=== PATIENT | female | born 1990 | race Caucasian/White ===

== ENCOUNTER 2022-07-11 21:04 | Emergency (ER) | payer OTHER, SELFPAY ==
--- NOTE | ~2022-07-11 | XR_ITS ---
EXAMINATION: RIGHT HAND, RIGHT FOREARM CLINICAL INFORMATION: Laceration from glass COMPARISON: None TECHNIQUE: 2 views right forearm, 3 views right wrist FINDINGS: Old healed fractures are seen involving the distal radius and ulna. No radiopaque foreign bodies are seen. No acute fractures are noted. XR/XR forearm RT 2V IMPRESSION: Old healed fractures. No radiopaque foreign body detected
--- NOTE | ~2022-07-11 | XR_ITS ---
EXAMINATION: RIGHT HAND, RIGHT FOREARM CLINICAL INFORMATION: Laceration from glass COMPARISON: None TECHNIQUE: 2 views right forearm, 3 views right wrist FINDINGS: Old healed fractures are seen involving the distal radius and ulna. No radiopaque foreign bodies are seen. No acute fractures are noted. XR/XR hand RT 2V IMPRESSION: Old healed fractures. No radiopaque foreign body detected
[2022-07-11 21:08] VITALS: BP 115/83; PULSE 86; RESP 18; TEMP 37; O2SAT 100; BMI 18.8
--- NOTE | 2022-07-12 00:44 | ED.WOUNDLAC ---
HPI - Wound/Laceration General Chief Complaint: Wound/Laceration Stated Complaint: arm lac Time Seen by Provider: 07/12/22 00:43 Source: patient Mode of arrival: ambulatory History of Present Illness HPI narrative: 31-year-old female presents with laceration to the right arm after she fell on to some broken glass. Related Data Previous Rx's Medication Instructions Recorded cephalexin 500 mg capsule 500 mg PO BID 5 days #10 caps 07/12/22 doxycycline hyclate 100 mg tablet 100 mg PO BID 5 days #10 tabs 07/12/22 Allergies Allergy/AdvReac Type Severity Reaction Status Date / Time Sulfa (Sulfonamide Allergy Mild HIVES Verified 07/11/22 23:44 Antibiotics) [SULFA (SULFONAMIDE ANTIBIOTICS)] nisoldipine [Sular] Allergy Unknown Unknown Verified 07/11/22 23:44 sulfamethoxazole Allergy Unknown SWELLING Verified 07/11/22 23:44 [From BACTRIM] trimethoprim [From BACTRIM] Allergy Unknown SWELLING Verified 07/11/22 23:44 Sulfa Allergy Unknown Unknown Uncoded 07/11/22 23:44 Review of Systems Review of Systems: Pertinent positives and negatives as stated in HPI 10 point review of systems is otherwise negative. [facility] Past Medical History Source: nursing notes reviewed Social History Social History Advance Directives: No Advance Directives Information Provided: No Physical Exam Vital Signs: Vital Signs: Last Vital Signs Temp 98.6 F 07/11/22 21:08 Pulse 86 07/11/22 21:08 Resp 18 07/11/22 21:08 BP 115/83 07/11/22 21:08 Pulse Ox 100 07/11/22 21:08 O2 Del Method 07/11/22 21:08 BMI result Body Mass Index 18.8 VITAL SIGNS: Reviewed. GENERAL: Appears older than stated age, malnutrition, in no acute distress. HEAD: Normocephalic/atraumatic EYES: PERRLA, EOMI EARS: Ext canals without abnormality OROPHARYNX: no oral lesions noted, posterior pharynx clear LUNGS: Normal breath sounds. CARDIOVASCULAR: Regular rate and rhythm without noted murmurs ABDOMEN: Soft, non-tender, non-distended with bowel sounds. EXTREMITIES: No cyanosis, clubbing or edema; RIGHT UPPER EXTREMITY: 12 cm laceration extending from elbow distal to just above wrist, approximate 12 cm, to include a deep abrasion to the hypothenar NEUROLOGIC: Alert and oriented x 4. Course Course Course Narrative: 31-year-old female with history and clinical presentation consistent with significant injury after falling onto broken glass with 12 cm laceration to the forearm and additional deep abrasion to the hypothenar of the right hand. Patient received 18 interrupted sutures to the forearm laceration, bacitracin and dressing to the abrasion on the hypothenar and a Tdap. She will be discharged on antibiotics given her underlying IVDA. Procedures Laceration Laceration 1: Site: upper extremity Side (If applicable): right Size (cm): 12 Description: linear and irregular Depth: simple, single layer Local Anesthetic: lidocaine 2% Amount of anesthesia used (mL): 7 Pre-repair: wound explored, irrigated extensively, deep structures intact and extensive debridement Skin layer closed with: nylon Size (cm): 4-0 Number of sutures: 18 Technique: simple, interrupted Discharge Plan Discharge Clinical Impression: Laceration, Abrasion Patient Disposition: Home, Self-Care Instructions: Laceration (ED), Abrasion (ED) Additional Instructions: 1. Gently cleanse wounds with soap and water and blot dry, reapply antibiotic ointment and place dry dressing over top. 2. Either return to this emergency room or go to your primary care provider for removal of your sutures in 7-10 days (there are 18). 3. Complete entire course of antibiotics. 4. Follow-up with your primary care provider. Return to the ER for worsening symptoms. Prescriptions: New doxycycline hyclate 100 mg tablet 100 mg PO BID 5 Days Qty: 10 0RF cephalexin 500 mg capsule 500 mg PO BID 5 Days Qty: 10 0RF
--- OUTSIDE RECORDS SUMMARY | 2022-07-12 00:44 | XMS_ITS | Continuity of Care Document ---
:1990 Author Organization [facility] Address [address] [place] [id number]- Care Team Providers Name Role Phone Wandy Silverman MD Primary Care Physician Encounter [facility] [id number] Date(s): 06/17/21 - 06/17/[address] [address]- Encounter Diagnosis Abdominal pain (Final) - 06/17/21 Nausea (Final) - 06/17/21 Discharge Disposition: A-D/C Home Attending Physician: Yelena White MD Admitting Physician: Yelena White MD Referring Physician: Not on Staff, Referring MD Allergies, Adverse Reactions, Alerts Substance Reaction Severity Status sulfADIAZINE Active Bactrim Active Immunizations Given and Recorded Vaccine Date Status Refusal Reason tetanus/diphtheria/pertussis, acel(Tdap) 04/18/11 Given Medications Diflucan 150 mg oral tablet 1 tablet = 150 mg, By Mouth, Once, # 1 tablet, 0 Refills, Soft Stop, 07/02/20 12:10:00 EDT, Tablet, [facility] #[id number], 163, cm, 07/02/20 11:37:00 EDT, Height, 61, kg, 07/02/20 11:37:00 EDT, Dry Weight Start Date: 07/02/20 Status: Orderedibuprofen 600 mg oral tablet 1 tablet = 600 mg, By Mouth, Every 6 hours, # 40 tablet, 0 Refills, Maintenance, Tablet Start Date: 04/20/11 Status: OrderedMirena 52 mg intrauteral device 1 each = 52 mg, Intracervical, Once, # 1 each, 0 Refills, Soft Stop, 03/16/15 16:10:28, 1 each Intracervical Once Start Date: 03/16/15 Status: Orderedondansetron 4 mg oral tablet, disintegrating 1 tablet = 4 mg, By Mouth, Every 8 hours, PRN Nausea & Vomiting, # 10 tablet, 0 Refills, Maintenance, 08/25/20 21:29:00 EST, Tablet, [id number], Partial fill upon patient request, 163, cm, 08/25/20 19:55:00 EST, Height, 65, kg,... Start Date: 08/25/20 Status: Orderedondansetron 4 mg oral tablet, disintegrating 1 tablet = 4 mg, By Mouth, Every 8 hours, PRN Nausea & Vomiting, # 10 tablet, 0 Refills, Acute 06/23/21 22:15:00 EDT, 06/17/21 21:08:00 EDT, Tablet, [facility]/pharmacy #[id number], Partial fill upon patient request if the prescription is for a schedule II opioid... Start Date: 06/17/21 Stop Date: 06/23/21 Status: OrderedRemeron 15 mg oral tablet 1 tablet = 15 mg, By Mouth, Daily at bedtime, 0 Refills, Maintenance, 11/22/19 13:44:00 EST Start Date: 11/22/19 Status: OrderedSeroquel 50 mg, By Mouth, Refills 0, Maintenance, 11/22/19 13:44:00 EST Start Date: 11/22/19 Status: Ordered Results Radiology Reports Exam Date Time Procedure Performing Provider Status 06/17/21 7:14 PM Chest 2 Views Frontal and Lat Minerva Lopez ; Auth (Verified) Notes:(Chest 2 Views Frontal and Lat) Reason For Exam: Shortness of Breath, Fever;Other:RESULT: Chest 2 Views Frontal and Lat Chest 2 Views Frontal and Lat Hx of Present Illness: states abdominal pain center of abdomen states + nausea states travels into back and having N V and extremly tired states thinks pancreatitis may be acting up states pain aslo into chest area started on friday getting worse; Reason: Other:; Shortness of Breath, Fever; Clinical Question(s): Pneumonia COMPARISON: X-ray 06/02/2019 FINDINGS: LINES AND TUBES: None. LUNGS AND PLEURA: Clear lungs. Normal pulmonary vascularity. No pleural effusion. No pneumothorax. HEART, MEDIASTINUM AND DIGNA: Heart is normal in size. Normal upper mediastinal and hilar contour. BONES AND SOFT TISSUES: No acute abnormality. IMPRESSION: No acute abnormality. WSN: [id number] Ordering Physician: Danielle Jackson Dictated By: Erickson Gomez MD Dictated Date/Time: 06/17/21 7:20 pm Reviewed By: Erickson Gomez MD Signed By: Erickson Gomez MD Signed Date/Time: 06/17/21 7:20 pm Transcribed By: CASSIUS Transcribed Date/Time: 06/17/21 7:19 pm Vital Signs Most recent to oldest 1 2 3 [Reference Range]: Height 163 cm 163 cm (06/17/21 4:30 PM) (06/17/21 3:54 PM) Weight 73 kg 73 kg (06/17/21 4:30 PM) (06/17/21 3:54 PM) Oxygen Saturation [94-100 %] 96 % 99 % 98 % (06/17/21 8:56 PM) (06/17/21 3:54 PM) (06/17/21 3:43 P M) Pulse Rate [55-90 bpm] 73 bpm 77 bpm 94 bpm (06/17/21 8:56 PM) (06/17/21 3:54 PM) *H* (06/17/21 3:43 PM) Body Mass Index [18.5-24.99] 27.48 *H* (06/17/21 3:54 PM) Blood Pressure [90-138/55-84 111/78 mm Hg 131/90 mm Hg mm Hg] (06/17/21 8:56 PM) (06/17/21 3:54 PM) Respiratory Rate [16-30 18 br/min 19 br/min br/min] (06/17/21 8:56 PM) (06/17/21 3:54 PM) Temperature [96.8-100.4 98.3 DegF 98.8 DegF DegF] (06/17/21 8:56 PM) (06/17/21 3:54 PM) Mode of Delivery (Oxygen) Room air Room air (06/17/21 8:56 PM) (06/17/21 3:54 PM) Blood pressure sites Arm, right Arm, right (06/17/21 8:56 PM) (06/17/21 3:54 PM) Temperature Route Oral Oral (06/17/21 8:56 PM) (06/17/21 3:54 PM) Dry Weight 73 kg 73 kg (06/17/21 4:30 PM) (06/17/21 3:54 PM) Weight Obtained Via Patient/family stated (06/17/21 3:54 PM) Dry Weight Obtained Via Patient/family stated (06/17/21 3:54 PM) Social History Social History Type Response Smoking Status 10 or more cigarettes (1/2 p ack or more)/day in last 30 days entered on: 05/09/19 Sex Female
--- OUTSIDE RECORDS SUMMARY | 2022-07-12 00:44 | XMS_ITS | Continuity of Care Document ---
:1990 Author Organization [facility] Address [address] [place] [address]- Care Team Providers Name Role Phone Wandy Silverman MD Primary Care Physician Encounter [facility] Date(s): 07/02/20 - 07/09/20 [facility] [address] [place] [address]- [facility] Attending Physician: Alannah Evans Referring Physician: Wandy Silverman MD Allergies, Adverse Reactions, Alerts Substance Reaction Severity Status sulfADIAZINE Active Bactrim Active Immunizations Given and Recorded Vaccine Date Status Refusal Reason tetanus/diphtheria/pertussis, acel(Tdap) 04/18/11 Given Medications Diflucan 150 mg oral tablet 1 tablet = 150 mg, By Mouth, Once, # 1 tablet, 0 Refills, Soft Stop, 07/02/20 12:10:00 EDT, Tablet, [facility] #[id number], 163, cm, 07/02/20 11:37:00 EDT, Height, 61, [...] each Intracervical Once Start Date: 03/16/15 Status: OrderedRemeron 15 mg oral tablet 1 tablet = 15 mg, By Mouth, Daily at bedtime, 0 Refills, Maintenance, 11/22/19 13:44:00 EST Start Date: 11/22/19 Status: OrderedSeroquel 50 mg, By Mouth, Refills 0, Maintenance, 11/22/19 13:44:00 EST Start Date: 11/22/19 Status: Ordered Vital Signs Most recent to oldest [Reference Range]: 1 Height 163 cm (07/02/20 11:37 AM) Oxygen Saturation [94-100 %] 99 % (07/02/20 11:37 AM) Pulse Rate [55-90 bpm] 62 bpm (07/02/20 11:37 AM) Blood Pressure [90-138/55-84 mm Hg] 124/77 mm Hg (07/02/20 11:37 AM) Respiratory Rate [16-30 br/min] 20 br/min (07/02/20 11:37 AM) Temperature [96.8-100.4 DegF] 98.3 DegF (07/02/20 11:37 AM) Blood pressure sites Arm, left (07/02/20 11:37 AM) Temperature Route Temporal (07/02/20 11:37 AM) Dry Weight 61.0 kg (07/02/20 11:37 AM) Weight Obtained Via Standing scale (07/02/20 11:37 AM) Social History Social History Type Response Smoking Status 10 or more cigarettes (1/2 p ack or more)/day in last 30 days entered on: 05/09/19 Sex Female
--- OUTSIDE RECORDS SUMMARY | 2022-07-12 00:44 | XMS_ITS | Continuity of Care Document ---
:1990 Author Organization [facility] Address [address] [place] [id number]- Care Team Providers Name Role Phone Wandy Silverman MD Primary Care Physician Encounter [facility] Date(s): 07/30/21 - 07/30/[address] [address]- Discharge Disposition: A-D/C Walkout Attending Physician: Not on Staff, Attending MD Admitting Physician: Not on Staff, Admitting MD Referring Physician: Not on Staff, Referring MD Allergies, Adverse Reactions, Alerts Substance Reaction Severity Status sulfADIAZINE Active Bactrim Active Immunizations Given and Recorded Vaccine Date Status Refusal Reason tetanus/diphtheria/pertussis, acel(Tdap) 04/18/11 Given Medications Diflucan 150 mg oral tablet 1 tablet = 150 mg, By Mouth, Once, # 1 tablet, 0 Refills, Soft Stop, 07/02/20 12:10:00 EDT, Tablet, [id number], 163, cm, 07/02/20 11:37:00 EDT, Height, 61, [...] 0 Refills, Maintenance, 08/25/20 21:29:00 EST, Tablet, [id number], Partial fill upon patient request, 163, cm, 08/25/20 19:55:00 EST, Height, 65, kg,... Start Date: 08/25/20 Status: OrderedRemeron 15 mg oral tablet 1 tablet = 15 mg, By Mouth, Daily at bedtime, 0 Refills, Maintenance, 11/22/19 13:44:00 EST Start Date: 11/22/19 Status: OrderedSeroquel 50 mg, By Mouth, Refills 0, Maintenance, 11/22/19 13:44:00 EST Start Date: 11/22/19 Status: Ordered Vital Signs Most recent to oldest [Reference Range]: 1 2 Oxygen Saturation [94-100 %] 99 % 97 % (07/30/21 5:06 AM) (07/30/21 1:30 AM) Pulse Rate [55-90 bpm] 68 bpm 96 bpm (07/30/21 5:06 AM) *H* (07/30/21 1:30 AM) Blood Pressure [90-138/55-84 mm Hg] 125/79 mm Hg 133/ 89 mm Hg (07/30/21 5:06 AM) (07/30/21 1:30 AM) Respiratory Rate [16-30 br/min] 16 br/min 18 br/mi n (07/30/21 5:06 AM) (07/30/21 1:30 AM) Temperature [96.8-100.4 DegF] 97.9 DegF 98.4 DegF (07/30/21 5:06 AM) (07/30/21 1:30 AM) Mode of Delivery (Oxygen) Room air Room air (07/30/21 5:06 AM) (07/30/21 1:30 AM) Blood pressure sites Arm, right Arm, right (07/30/21 5:06 AM) (07/30/21 1:30 AM) Temperature Route Oral Oral (07/30/21 5:06 AM) (07/30/21 1:30 AM) Social History Social History Type Response Smoking Status 10 or more cigarettes (1/2 p ack or more)/day in last 30 days entered on: 05/09/19 Sex Female
--- OUTSIDE RECORDS SUMMARY | 2022-07-12 00:44 | XMS_ITS | Continuity of Care Document ---
:1990 Author Organization [facility] Address [address] [place] [id number]- Care Team Providers Name Role Phone Not on Staff, PCP Primary Care Physician Unavailable Encounter [facility] Date(s): 11/22/19 - 11/22/[address] [address]- [facility] Discharge Disposition: A-D/C Walkout Attending Physician: Not on Staff, Attending MD Admitting Physician: Not on Staff, Admitting MD Referring Physician: Not on Staff, Referring MD Allergies, Adverse Reactions, Alerts Substance Reaction Severity Status sulfADIAZINE Active Bactrim Active Immunizations Given and Recorded Vaccine Date Status Refusal Reason tetanus/diphtheria/pertussis, acel(Tdap) 04/18/11 Given Medications ibuprofen 600 mg oral tablet 1 tablet = [...] Range]: 1 2 Oxygen Saturation [94-100 %] 100 % 98 % (11/22/19 1:40 PM) (11/22/19 1:36 PM) Pulse Rate [55-90 bpm] 118 bpm 120 bpm *H* *H* (11/22/19 1:40 PM) (11/22/19 1:36 PM) Blood Pressure [90-138/55-84 mm Hg] 117/65 mm Hg (11/22/19 1:40 PM) Respiratory Rate [16-30 br/min] 20 br/min (11/22/19 1:40 PM) Temperature [96.8-100.4 DegF] 98.6 DegF (11/22/19 1:40 PM) Mode of Delivery (Oxygen) Room air (11/22/19 1:40 PM) Blood pressure sites Arm, right (11/22/19 1:40 PM) Temperature Route Oral (11/22/19 1:40 PM) Social History Social History Type Response Smoking Status 10 or more cigarettes (1/2 p ack or more)/day in last 30 days entered on: 05/09/19 Sex Female
--- OUTSIDE RECORDS SUMMARY | 2022-07-12 00:44 | XMS_ITS | Continuity of Care Document ---
:1990 Author Organization [facility] Address [address] [place] [address]- Care Team Providers Name Role Phone Wandy Silverman MD Primary Care Physician Encounter [facility] Date(s): 06/05/22 - 06/11/[address] [address]- Discharge Disposition: A-D/C Home Attending Physician: Magdaleno Matthew MD Admitting Physician: Prosper Dooley MD Referring Physician: Prosper Dooley MD Allergies, Adverse Reactions, Alerts Substance Reaction Severity Status sulfADIAZINE Active Bactrim Active Immunizations Given and Recorded Vaccine Date Status Refusal Reason tetanus/diphtheria/pertussis, acel(Tdap) 04/18/11 Given Medications buPROPion 150 mg/24 hours (XL) oral tablet, extended release 1 tablet = 150 mg, By Mouth, Every 24 hours, # 30 tablet, 0 Refills, Maintenance, 06/05/22 12:23:00 EDT, ER Tablet, Partial fill upon patient request if the prescription is for a schedule II opioid drug. Start Date: 06/05/22 Status: OrderedcloNIDine 0.1 mg oral tablet 0.1 mg, 1, tablet, By Mouth, 2 times a day, PRN, # 60 tablet, Refills 0, Maintenance, Anxiety, 06/05/22 12:23:00 EDT, Partial fill upon patient request if the prescription is for a schedule II opioid drug. Start Date: 06/05/22 Stop Date: 07/05/22 Status: Ordereddocusate sodium 100 mg oral capsule 200 mg, 2, capsule, By Mouth, 2 times a day, Refills 0, Maintenance, 06/05/22 12:01:00 EDT, Partial fill upon patient request if the prescription is for a schedule II opioid drug. Start Date: 06/05/22 Status: Ordereddoxycycline monohydrate 100 mg oral capsule 1 capsule = 100 mg, By Mouth, 2 times a day, for 14 days, # 28 capsule, 0 Refills, Acute 06/25/22 7:17:00 EDT, 06/11/22 7:17:00 EDT, Capsule, [facility]/pharmacy #[id number], Partial fill upon patient request if the prescription is for a schedule II opioid drug.,... Start Date: 06/11/22 Stop Date: 06/25/22 Status: Orderedmethadone 10 mg/5 mL oral solution 45 mL = 90 mg, By Mouth, Daily, 0 Refills, Maintenance, 06/11/22 7:17:00 EDT, Solution, Partial fillupon patient request if the prescription is for a schedule II opioid drug. Start Date: 06/11/22 Status: OrderedMethadone Liquid 90 mg, Solution, By Mouth, per addiction medicine, 06/11/22 9:00:00 EDT Start Date: 06/11/22 Stop Date: 06/11/22 Status: Completedmidodrine 5 mg oral tablet 5 mg, Tablet, By Mouth, 06/11/22 9:00:00 EDT Start Date: 06/11/22 Stop Date: 06/11/22 Status: Completedmidodrine 5 mg oral tablet 5 mg, 1, tablet, By Mouth, 3 times a day, # 90 tablet, Refills 0, Tot. Refills 0, Maintenance, 06/11/22 7:17:00 EDT, Route to Pharmacy Electronically, [facility]/pharmacy #[id number], Partial fill upon patient request if the prescription is for a schedule II opioi... Start Date: 06/11/22 Status: Orderedmirtazapine 7.5 mg oral tablet 1 tablet = 7.5 mg, By Mouth, Daily at bedtime, # 30 tablet, 0 Refills, Maintenance, 06/05/22 12:23:00 EDT, Partial fill upon patient request if the prescription is for a schedule II opioid drug. Start Date: 06/05/22 Status: Orderedondansetron 4 mg oral tablet, disintegrating 1 tablet = 4 mg, By Mouth, Every 8 hours, PRN Nausea & Vomiting, # 10 tablet, 0 Refills, Maintenance, 08/25/20 21:29:00 EST, Tablet, [facility]-[id number], Partial fill upon patient request, 163, cm, 08/25/20 19:55:00 EST, Height, 65, kg,... Start Date: 08/25/20 Status: Orderedprazosin 2 mg oral capsule 1 capsule = 2 mg, By Mouth, Daily at bedtime, # 30 capsule, 0 Refills, Maintenance, 06/05/22 12:49:00 EDT, Capsule, Partial fill upon patient request if the prescription is for a schedule II opioid drug. Start Date: 06/05/22 Status: OrderedQUEtiapine 25 mg oral tablet 25 mg, 1, tablet, By Mouth, 2 times a day, # 30 tablet, Refills 0, Maintenance, 06/05/22 12:23:00 EDT, Partial fill upon patient request if the prescription is for a schedule II opioid drug. Start Date: 06/05/22 Status: OrderedSenna 8.6 mg oral tablet 17.2 mg, 2, tablet, By Mouth, Daily at bedtime, Refills 0, Maintenance, 06/05/22 12:02:00 EDT, Tablet, Partial fill upon patient request if the prescription is for a schedule II opioid drug. Start Date: 06/05/22 Status: OrderedVancomycin 1gm Vancomycin 1gm, See Instructions, # 10 each, Refills 0, Tot. Refills 0, Maintenance, IVPB BID - end date 06/10/22, 06/05/22 12:12:00 EDT, Supply Start Date: 06/05/22 Status: Ordered Vital Signs Most recent to oldest 1 2 3 [Reference Range]: Height 163 cm 163 cm 163 cm (06/11/22 8:17 AM) (06/11/22 3:45 AM) (06/10/22 11: 52 PM) Weight 54.9 kg (06/05/22 7:54 PM) Oxygen Saturation [94-100 %] 98 % 98 % 97 % (06/11/22 9:36 AM) (06/11/22 8:17 AM) (06/11/22 3:4 5 AM) Pulse Rate [55-90 bpm] 74 bpm 74 bpm 79 bpm (06/11/22 8:21 AM) (06/11/22 8:17 AM) (06/11/22 3:4 5 AM) Body Mass Index [18.5-24.99] 20.66 (06/05/22 7:54 PM) Blood Pressure [90-138/55-84 108/62 mm Hg 108/62 mm Hg 103 /58 mm Hg mm Hg] (06/11/22 8:21 AM) (06/11/22 8:17 AM) (06/11/22 3:4 5 AM) Respiratory Rate [16-30 14 br/min 14 br/min 16 br/mi n br/min] *L* *L* (06/11/22 8:17 AM ) (06/11/22 10:14 AM) (06/11/22 8:21 AM) Temperature [96.8-100.4 DegF] 98.2 DegF 98.0 DegF 97 .9 DegF (06/11/22 8:17 AM) (06/11/22 3:45 AM) (06/10/22 11: 52 PM) Mode of Delivery (Oxygen) Room air Room air Room a ir (06/11/22 8:17 AM) (06/11/22 3:45 AM) (06/10/22 11: 52 PM) Blood pressure sites Arm, right Arm, right Arm, right (06/11/22 8:17 AM) (06/11/22 3:45 AM) (06/10/22 11: 52 PM) Temperature Route Oral Oral Oral (06/11/22 8:17 AM) (06/11/22 3:45 AM) (06/10/22 11: 52 PM) Dry Weight 54.9 kg (06/05/22 7:54 PM) Weight Obtained Via Bed scale (06/05/22 7:54 PM) Social History Social History Type Response Smoking Status 10 or more cigarettes (1/2 p ack or more)/day in last 30 days entered on: 05/09/19 Sex Female Care Team PersonnelName: Wandy Silverman MD Address: [facility] [address]
--- OUTSIDE RECORDS SUMMARY | 2022-07-12 00:44 | XMS_ITS | Continuity of Care Document ---
:1990 Author Organization [facility] Address [address] [place] [id number]- Care Team Providers Name Role Phone Wandy Silverman MD Primary Care Physician Encounter [facility] [place] Date(s): 05/27/22 - 06/05/[address] [address]- Encounter Diagnosis Left hip pain (Final) - 05/24/22 IV drug user (Final) - 05/24/22 Discharge Disposition: Transferred to short-term general hospit Attending Physician: Ji ARGUETA [facility] Admitting Physician: Derek King DO Referring Physician: Not on Staff, Referring MD [...] II opioid drug. Start Date: 06/05/22 Status: OrderedEnoxaparin 0.4 mL = 40 mg, Subcutaneous Injection, Daily, 0 Refills, Maintenance, 06/05/22 12:01:00 EDT, Injection, Partial fill upon patient request if the prescription is for a schedule II opioid drug. Start Date: 06/05/22 Status: Orderedibuprofen 600 mg oral tablet 600 mg, 1, tablet, By Mouth, 4 times a day, PRN, for 3 days, # 12 tablet, Refills 0, Tot. Refills 0,Acute 06/08/22 12:54:00 EDT, Pain , Moderate, 06/05/22 12:54:00 EDT, Do Not Route, Partial fill uponpatient request if the prescription is for a sche... Start Date: 06/05/22 Stop Date: 06/08/22 Status: Orderedibuprofen 600 mg oral tablet 600 mg, Tablet, By Mouth, Every 6 hours, PRN for Pain , Moderate, Routine, 05/24/22 14:53:00 EDT Start Date: 05/24/22 Stop Date: 06/06/22 Status: Discontinuedmethadone 10 mg oral tablet 4.5 tablet = 45 mg, By Mouth, 2 times a day, 0 Refills, Maintenance, 06/05/22 12:02:00 EDT, Tablet, Partial fill upon patient request if the prescription is for a schedule II opioid drug. Start Date: 06/05/22 Status: Orderedmethadone 10 mg oral tablet 45 mg, Tablet, By Mouth, Total daily dosing 90mg, 06/05/22 9:00:00 EDT Start Date: 06/05/22 Stop Date: 06/05/22 Status: CompletedMiraLax Powder 1 pack/packet = 17 Gm, By Mouth, Daily, 0 Refills, Maintenance, 06/05/22 12:02:00 EDT, Powder, Partial fill upon patient request if the prescription is for a schedule II opioid drug. Start Date: 06/05/22 Status: Orderedmirtazapine 7.5 mg oral tablet 1 [...] 0 Refills, Maintenance, 08/25/20 21:29:00 EST, Tablet, [id number], Partial fill upon patient request, 163, cm, [...] II opioid drug. Start Date: 06/05/22 Status: OrderedTylenol 325 mg oral capsule 2 capsule = 650 mg, By Mouth, 4 times a day, for 5 days, # 40 capsule, 0 Refills, Acute 06/10/22 12:24:00 EDT, 06/05/22 12:24:00 EDT, Capsule, Partial fill upon patient request if the prescription is for a schedule II opioid drug. Start Date: 06/05/22 Stop Date: 06/10/22 Status: OrderedVancomycin 1gm Vancomycin 1gm, See Instructions, # 10 each, Refills 0, Tot. Refills 0, Maintenance, IVPB BID - end date 06/10/22, 06/05/22 12:12:00 EDT, Supply Start Date: 06/05/22 Status: Ordered Results Orders for Microbiology Reports Name Date Anaerobic Culture (ANAEROBIC CULTURE) 05/28/22 Fungal Culture, Nonrespiratory (FUNGAL CULT,NON-RESPIR ATORY) 05/28/22 Sterile Body Fluid Culture W/ Gram Smear (STERILE FLUI D CULT.) 05/28/22 Anaerobic Culture (ANAEROBIC CULTURE) 05/28/22 Fungal Culture, Nonrespiratory (FUNGAL CULT,NON-RESPIR ATORY) 05/28/22 Tissue Culture w/ Gram Smear (TISSUE/BIOPSY CULT.) 05/13 04/03 Anaerobic Culture (ANAEROBIC CULTURE) 05/28/22 Fungal Culture, Nonrespiratory (FUNGAL CULT,NON-RESPIR ATORY) 05/28/22 Sterile Body Fluid Culture W/ Gram Smear (STERILE FLUI D CULT.) 05/28/22 Blood Culture 05/28/22 Microbiology Reports (Most Recent Ten) TEST:Anaerobic Culture STATUS:Unauthenticated BODY SITE: SOURCE:FLUID COLLECTED DATE/TIME:05/28/22 2:24 PMAnaerobic Culture SPECIMEN DESCRIPTION : FLUID LFT HIP ARTHOGRAM DILUTED FL SPECIAL REQUESTS : NONE CULTURE : NO ANAEROBES ISOLATED SO FAR. REPORT STATUS : PRELIMINARY REPORT TEST:Sterile Fluid Culture STATUS:Auth (Verified) BODY SITE: SOURCE:FLUID COLLECTED DATE/TIME:05/28/22 2:24 PMSterile Fluid Culture SPECIMEN DESCRIPTION : FLUID LFT HIP ARTHOGRAM DILUTED FL SPECIAL REQUESTS : NONE GRAM STAIN : 1+ WHITE BLOOD CELLS 2+ TISSUE CELLS NO ORGANISMS SEEN CULTURE : NO GROWTH 2 DAYS REPORT STATUS : FINAL 05/30/2022TEST:Fungal Culture, Non-Respiratory STATUS:Unauthenticated BODY SITE: SOURCE:FLUID COLLECTED DATE/TIME:05/28/22 2:24 PMFungal Culture, Non-Respiratory SPECIMEN DESCRIPTION : FLUID LFT HIP ARTHOGRAM DILUTED FL SPECIAL REQUESTS : NONE DIRECT EXAM : NO FUNGAL ELEMENTS OBSERVED CULTURE : NO FUNGI ISOLATED AFTER 6 DAYS REPORT STATUS : PRELIMINARY REPORT TEST:Anaerobic Culture STATUS:Unauthenticated BODY SITE: SOURCE:TISSUE1 COLLECTED DATE/TIME:05/28/22 2:19 PMAnaerobic Culture SPECIMEN DESCRIPTION : TISSUE JOINT LFT HIP SPECIAL REQUESTS : NONE CULTURE : NO ANAEROBES ISOLATED SO FAR. REPORT STATUS : PRELIMINARY REPORT TEST:Fungal Culture, Non-Respiratory STATUS:Unauthenticated BODY SITE: SOURCE:TISSUE1 COLLECTED DATE/TIME:05/28/22 2:19 PMFungal Culture, Non-Respiratory SPECIMEN DESCRIPTION : TISSUE JOINT LFT HIP SPECIAL REQUESTS : NONE DIRECT EXAM : NO FUNGAL ELEMENTS OBSERVED CULTURE : NO FUNGI ISOLATED AFTER 6 DAYS REPORT STATUS : PRELIMINARY REPORT TEST:Tissue/Biopsy Culture STATUS:Auth (Verified) BODY SITE: SOURCE:TISSUE1 COLLECTED DATE/TIME:05/28/22 2:19 PMTissue/Biopsy Culture SPECIMEN DESCRIPTION : TISSUE JOINT LFT HIP SPECIAL REQUESTS : NONE GRAM STAIN : 2+ WHITE BLOOD CELLS NO ORGANISMS SEEN CULTURE : NO GROWTH 2 DAYS REPORT STATUS : FINAL 05/30/2022TEST:Anaerobic Culture STATUS:Unauthenticated BODY SITE: SOURCE:ASPIRA COLLECTED DATE/TIME:05/28/22 2:02 PMAnaerobic Culture SPECIMEN DESCRIPTION : ASPIRATE LFT HIP SPECIAL REQUESTS : NONE CULTURE : NO ANAEROBES ISOLATED SO FAR. REPORT STATUS : PRELIMINARY REPORT TEST:Fungal Culture, Non-Respiratory STATUS:Unauthenticated BODY SITE: SOURCE:ASPIRA COLLECTED DATE/TIME:05/28/22 2:02 PMFungal Culture, Non-Respiratory SPECIMEN DESCRIPTION : ASPIRATE LFT HIP SPECIAL REQUESTS : NONE DIRECT EXAM : NO FUNGAL ELEMENTS OBSERVED CULTURE : NO FUNGI ISOLATED AFTER 6 DAYS REPORT STATUS : PRELIMINARY REPORT TEST:Sterile Fluid Culture STATUS:Auth (Verified) BODY SITE: SOURCE:ASPIRA COLLECTED DATE/TIME:05/28/22 2:02 PMSterile Fluid Culture SPECIMEN DESCRIPTION : ASPIRATE LFT HIP SPECIAL REQUESTS : NONE GRAM STAIN : 1+ WHITE BLOOD CELLS 2+ TISSUE CELLS NO ORGANISMS SEEN CULTURE : NO GROWTH 2 DAYS REPORT STATUS : FINAL 05/30/2022TEST:Blood Culture STATUS:Auth (Verified) BODY SITE: SOURCE:Blood COLLECTED DATE/TIME:05/28/22 10:05 AMBlood Culture SPECIMEN DESCRIPTION : BLOOD NOSITE SPECIAL REQUESTS : NONE CULTURE : NO GROWTH 5 DAYS. REPORT STATUS : FINAL 2Radiology Reports Exam Date Time Procedure Performing Provider Status 05/28/22 2:37 PM C-Arm < 1 Hour Molly Massey; Auth (V erified) Notes:(C-Arm < 1 Hour) Reason For Exam: LT hip AspirationRESULT: C-Arm < 1 Hour Hip Comp 2 Views Left, C-Arm < 1 Hour Reason: LT Hip Aspiration COMPARISON: Left hip MRI dated 05/26/2022. FINDINGS: Intraoperative fluoroscopic support was provided. No radiologist was in attendance. 14 selected intraoperative fluoroscopic images of the left hip were submitted for interpretation. Technologist time: 60 minutes. Fluoroscopic time: 40 seconds. Initial images demonstrate a surgical needle with tip overlying the femoral head neck junction. Subsequent images demonstrate injection of contrast with final images demonstrating surgical retractor device with metallic clamp with tip overlying the femoral head. IMPRESSION: Localization images of the left hip. Please refer to the intraoperative report for further details. WSN: [id number] Ordering Physician: Kamari Stewart Dictated By: Fabiola Davis MD Dictated Date/Time: 05/28/22 4:54 pm Reviewed By: Fabiola Davis MD Signed By: Fabiola Davis MD Signed Date/Time: 05/28/22 4:54 pm Transcribed By: CASSIUS Transcribed Date/Time: 05/28/22 4:48 pm Exam Date Time Procedure Performing Provider Status 05/28/22 2:37 PM XR Hip Comp 2 Views Left Molly Massey ; Auth (Verified) Notes:(XR Hip Comp 2 Views Left) Reason For Exam: LT Hip AspirationRESULT: Hip Comp 2 Views Left Hip Comp 2 Views Left, C-Arm < 1 Hour Reason: LT Hip Aspiration COMPARISON: Left hip MRI dated 05/26/2022. FINDINGS: Intraoperative fluoroscopic support was provided. No radiologist was in attendance. 14 selected intraoperative fluoroscopic images of the left hip were submitted for interpretation. Technologist time: 60 minutes. Fluoroscopic time: 40 seconds. Initial images demonstrate a surgical needle with tip overlying the femoral head neck junction. Subsequent images demonstrate injection of contrast with final images demonstrating surgical retractor device with metallic clamp with tip overlying the femoral head. IMPRESSION: Localization images of the left hip. Please refer to the intraoperative report for further details. WSN: [id number] Ordering Physician: Kamari Stewart Dictated By: Fabiola Davis MD Dictated Date/Time: 05/28/22 4:54 pm Reviewed By: Fabiola Davis MD Signed By: Fabiola Davis MD Signed Date/Time: 05/28/22 4:54 pm Transcribed By: CASSIUS Transcribed Date/Time: 05/28/22 4:48 pm Exam Date Time Procedure Performing Provider Status 05/23/22 11:16 PM XR Hip w/Pelvis 2-3 View Left Sebas Martinez; [facility] (Verified) Notes:(XR Hip w/Pelvis 2-3 View Left) Reason For Exam: With Pain;TraumaRESULT: XR Hip w/Pelvis 2-3 View Left XR Hip w/Pelvis 2-3 View Left Hx of Present Illness: pt co L hip pinched nerve ; Reason: Trauma; With Pain; Clinical Question(s):Fracture COMPARISON: None. FINDINGS: There is no fracture or dislocation. Normal hips and sacroiliac joints. Normal soft tissues. IMPRESSION: Normal. WSN: [id number] Ordering Physician: Ramona Boothe Dictated By: Gene Hayward MD Dictated Date/Time: 05/23/22 11:26 p Reviewed By: Gene Hayward MD Signed By: Gene Hayward MD Signed Date/Time: 05/23/22 11:26 pm Transcribed By: CASSIUS Transcribed Date/Time: 05/23/22 11:25 pm Exam Date Time Procedure Performing Provider Status 05/23/22 11:16 PM Hand Min 3 Views Left Sebas Martinez; Lian (Gualberto ified) Notes:(Hand Min 3 Views Left) Reason For Exam: with Pain;TraumaRESULT: Hand Min 3 Views Left Wrist Comp Min 3 Views Left, Hand Min 3 Views Left Hx of Present Illness: pt co L hip pinched nerve ; Reason: Trauma; with Pain; Clinical Question(s):Fracture COMPARISON: None. FINDINGS: No fracture or dislocation. No arthritic change. Normal carpal configuration. Intact radial and ulnar styloid processes. Soft tissue bulge along the radial aspect of the distal forearm. IMPRESSION: No acute osseous abnormality. Soft tissue bulge along the radial aspect of the distal forearm. I have personally reviewed the images and I agree with this report. WSN: [id number] Ordering Physician: Anjelica Pal Dictated By: Rich[Radiology] Shannon ARGUETA Dictated Date/Time: 05/23/22 11:28 p Reviewed By: Arthur Serrano MD Signed By: Arthur Serrano MD Signed Date/Time: 05/23/22 11:33 pm Transcribed By: CASSIUS Transcribed Date/Time: 05/23/22 11:26 pm Exam Date Time Procedure Performing Provider Status 05/23/22 11:16 PM Wrist Comp Min 3 Views Left Rayne Martinez (Verified) Notes:(Wrist Comp Min 3 Views Left) Reason For Exam: with Pain;TraumaRESULT: Wrist Comp Min 3 Views Left Wrist Comp Min 3 Views Left, Hand Min 3 Views Left Hx of Present Illness: pt co L hip pinched nerve ; Reason: Trauma; with Pain; Clinical Question(s):Fracture COMPARISON: None. FINDINGS: No fracture or dislocation. No arthritic change. Normal carpal configuration. Intact radial and ulnar styloid processes. Soft tissue bulge along the radial aspect of the distal forearm. IMPRESSION: No acute osseous abnormality. Soft tissue bulge along the radial aspect of the distal forearm. I have personally reviewed the images and I agree with this report. WSN: [id number] Ordering Physician: Anjelica Pal Dictated By: Rich[Radiology] Shannon ARGUETA Dictated Date/Time: 05/23/22 11:28 p Reviewed By: Arthur Serrano MD Signed By: Arthur Serrano MD Signed Date/Time: 05/23/22 11:33 pm Transcribed By: CASSIUS Transcribed Date/Time: 05/23/22 11:26 pm Vital Signs Most recent to oldest 1 2 3 [Reference Range]: Height 163 cm 163 cm 163 cm (06/04/22 1:50 PM) (06/04/22 5:07 AM) (06/03/22 8:2 6 PM) Weight 55.6 kg 55.6 kg (05/28/22 12:10 PM) (05/27/22 2:37 PM) Oxygen Saturation [94-100 %] 100 % 100 % 100 % (06/05/22 2:00 PM) (06/05/22 4:00 AM) (06/04/22 8:0 0 PM) Pulse Rate [55-90 bpm] 76 bpm 77 bpm 80 bpm (06/05/22 2:00 PM) (06/05/22 4:00 AM) (06/04/22 8:0 0 PM) Body Mass Index [18.5-24.99] 20.93 20.93 (05/28/22 12:10 PM) (05/27/22 2:37 PM) Blood Pressure [90-138/55-84 94/45 mm Hg 99/53 mm Hg 109 /56 mm Hg mm Hg] (06/05/22 2:00 PM) (06/05/22 4:00 AM) (06/04/22 8:0 0 PM) Respiratory Rate [16-30 18 br/min 16 br/min 16 br/mi n br/min] (06/05/22 2:00 PM) (06/05/22 1:25 PM) (06/05/22 9:0 7 AM) Temperature [96.8-100.4 DegF] 97.8 DegF 98 DegF 98 DegF (06/05/22 2:00 PM) (06/05/22 4:00 AM) (06/04/22 8:0 0 PM) Mode of Delivery (Oxygen) Room air Room air Room a ir (06/05/22 2:00 PM) (06/05/22 4:00 AM) (06/04/22 8:0 0 PM) Blood pressure sites Arm, right Arm, right Arm, right (06/05/22 2:00 PM) (06/05/22 4:00 AM) (06/04/22 8:0 0 PM) Temperature Route Oral Oral Oral (06/05/22 2:00 PM) (06/05/22 4:00 AM) (06/04/22 8:0 0 PM) Weight Obtained Via Bed scale (05/27/22 2:37 PM) Social History Social History Type Response Smoking Status 10 or more cigarettes (1/2 p ack or more)/day in last 30 days entered on: 05/09/19 Sex Female
--- OUTSIDE RECORDS SUMMARY | 2022-07-12 00:44 | XMS_ITS | Continuity of Care Document ---
:1990 Author Organization [facility] Address [address] [place] [address]- Care Team Providers Name Role Phone Wandy Silverman MD Primary Care Physician [place] [facility] [place]/20 [facility] [address] [place] [address]- [facility] Attending Physician: Julio Smiley Admitting Physician: Admtr, Julio Referring Physician: Admtr, Ar8 Allergies, Adverse Reactions, Alerts Substance Reaction Severity Status sulfADIAZINE Active Bactrim Active Immunizations Given and Recorded Vaccine Date Status Refusal Reason tetanus/diphtheria/pertussis, acel(Tdap) 04/18/11 Given Medications Diflucan 150 mg oral tablet 1 tablet = 150 mg, By Mouth, Once, # 1 tablet, 0 Refills, Soft Stop, 07/02/20 12:10:00 EDT, Tablet, [id number], 163, cm, 07/02/20 11:37:00 EDT, Height, 61, [...] 13:44:00 EST Start Date: 11/22/19 Status: Ordered Social History Social History Type Response Smoking Status 10 or more cigarettes (1/2 p ack or more)/day in last 30 days entered on: 05/09/19 Sex Female
[2022-07-12] MEDS: Diphth,Pertus(ACell),Tet Adult 0.5 ML SYRINGE IM (00:49)
[2022-07-12] MEDS: cephALEXin 500 MG CAPSULE PO (01:33)
== END 2022-07-12 01:36 | disposition home or self-care (01) ==
PROVIDERS: Emergency Provider Student in an Organized Health Care Education/Training Program
DX: S41.111A Laceration without foreign body of right upper arm, initial encounter (principal); S40.811A Abrasion of right upper arm, initial encounter; M79.601 Pain in right arm; W25.XXXA Contact with sharp glass, initial encounter; Y93.9 Activity, unspecified; Y92.9 Unspecified place or not applicable; Y99.9 Unspecified external cause status; Z79.899 Other long term (current) drug therapy
CPT/HCPCS: 12034; 73090; 73120; 90471; 90715; 99282; 99284

== ENCOUNTER 2022-09-16 00:28 | Emergency (ER) | payer OTHER, SELFPAY ==
[2022-09-16 00:34] VITALS: BP 108/67; PULSE 77; RESP 15; TEMP 36.7; O2SAT 99; BMI 20.3
[2022-09-16 01:05] LABS: Appearance Urine Clear; Color Urine Yellow; Glucose Urine UA Negative (Negative); Leukocyte Esterase Urine Moderate (2+) (Negative); Nitrite Urine Negative (Negative); UMIC TRIGGER UACC YES; Urine Blood Negative (Negative); Urine Ketones Negative (Negative); Urine Protein Negative (Neg-Trace)
[2022-09-16 01:18] LABS: Bacteria Urine None Seen (None Seen); Calcium Oxalate Crystals Urine Present; Hyaline Casts Urine 0-2 /LPF (0-2); RBC Urine 0-2 /HPF (0-2); UACC Culture Trigger YES; WBC Urine >50 /HPF (0-5)
--- NOTE | 2022-09-16 01:19 | ED_ITS ---
HPI - Female Genitourinary General Chief complaint: Urogenital-Female Stated complaint: Possible UTI Time Seen by Provider: 09/16/22 01:18 Source: patient Mode of arrival: ambulatory Limitations: no limitations History of Present Illness HPI Narrative: This is a 31-year-old female no significant medical history presenting to the emergency department with urinary frequency, urgency, dysuria times two days. Patient tells me this feels like her typical UTI she tells me she gets some a few times here. Patient has no concerns for transmitted infections. Patient does not think she is . Tells me pyridium usually helps her. Patient denies fevers, chills, chest pain, shortness of breath, nausea, vomiting, flank pain, vaginal discharge, vaginal pain, pelvic pain, abdominal pain. Related Data Previous Rx's Medication Instructions Recorded cephalexin 500 mg capsule 500 mg PO BID 5 days #10 caps 07/12/22 doxycycline hyclate 100 mg tablet 100 mg PO BID 5 days #10 tabs 07/12/22 cefuroxime axetil 250 mg tablet 250 mg PO BID 7 days #14 tabs 09/16/22 phenazopyridine 100 mg tablet 200 mg PO TID 2 days #6 tabs 09/16/22 (Pyridium) Allergies Allergy/AdvReac Type Severity Reaction Status Date / Time Sulfa (Sulfonamide Allergy Mild HIVES Verified 09/16/22 00:34 Antibiotics) [SULFA (SULFONAMIDE ANTIBIOTICS)] nisoldipine [Sular] Allergy Unknown Unknown Verified 09/16/22 00:34 sulfamethoxazole Allergy Unknown SWELLING Verified 09/16/22 00:34 [From BACTRIM] trimethoprim [From BACTRIM] Allergy Unknown SWELLING Verified 09/16/22 00:34 Sulfa Allergy Unknown Unknown Uncoded 09/16/22 00:34 Review of Systems Review of Systems: Constitutional : No Weight loss, No Fever, No Chills, No Fatigue, No Malaise ENT/Mouth : No sore throat, No Rhinorrhea Eyes: No Eye Pain, No Swelling, No Redness Cardiovascular : No Chest Pain, No SOB, No Dyspnea on Exertion, No Orthopnea, No Edema, No Palpitations Respiratory : No Cough, No Sputum, No Wheezing Gastrointestinal : No Nausea, No Vomiting, No Diarrhea, No Constipation, No abdominal Pain, No Hematochezia, No Melena Genitourinary : + Dysuria, + Urinary Frequency, No Hematuria, Musculoskeletal : No joint pain, No Myalgias, No Joint Swelling Skin : No Skin Lesions, No rash Neuro : No Weakness, No Numbness, No Dizziness, No Headache Psych : No Anxiety/Panic, No Depression All other systems reviewed and are negative Yes all other systems are reviewed and are negative [facility] Past Medical History Attestation statement: The following information was validated with the patient. Source: old records reviewed and nursing notes reviewed Social History Social History Advance Directives: No Advance Directives Information Provided: No Physical Exam Vital Signs: Vital Signs: Last Vital Signs Temp 98.0 F 09/16/22 00:34 Pulse 77 09/16/22 00:34 Resp 15 09/16/22 00:34 BP 108/67 09/16/22 00:34 Pulse Ox 99 09/16/22 00:34 O2 Del Method 09/16/22 00:34 BMI result Body Mass Index 20.3 vss Appearance: Alert.? Oriented X3.? No acute distress.? Head: Normocephalic, atraumatic, no step-offs or deformities Eyes: Pupils equal, round and reactive to light.? CVS: Normal heart rate and rhythm.? Pulses normal.? Respiratory: No respiratory distress.? Breath sounds normal.? Abdomen: Soft and nontender.? Skin: Skin warm and dry.? Normal skin color.? Normal skin turgor.? Extremities: No lower extremity edema.? No calf ttp. 5/5 strength to bilateral upper and lower extremities Back: No CVA tenderness bilaterally Neuro: Oriented X 3.? No motor deficit.? No sensory deficit. CN 2-12 intact Course Reevaluation(s) Reevaluation #1: Urine negative. Moderate amount of leukocyte esterases. At this time will treat for UTI as patient is symptomatic. Advised to return with any new or worsening symptoms. Educated on worrisome signs and symptoms and when to return. Comfortable discharge home with prompt PCP follow-up. Will discharge home on Ceftin and Pyridium. Time: 01:22 MDM - Female Genitourinary MDM Narrative Medical decision making narrative: 0120 31-year-old female presenting with urinary frequency, urgency, dysuria times a few days worsening. Tells me this feels like her typical UTI. Denies concerns for STDs or STIs. No flank pain. No fevers or chills. Physical exam benign. Concerns for UTI versus cystitis. No signs of acute abdomen, pyelonephritis. Plan at this time is to obtain a urine. Medical Records Attestation: I reviewed the patient's medical records. Lab Data Attestation: I reviewed the patient's lab results. Labs: Lab Results 09/16/22 09/16/22 Range/Units 00:53 00:53 Urine Color Yellow Urine Appearance Clear Urine pH 6.0 (5.0-9.0) Ur Specific [place] 1.020 (1.005-1.025) Urine Protein Negative (Neg-Trace) mg/dL Urine Glucose (UA) Negative (Negative) mg/dL Urine Ketones Negative (Negative) mg/dL Urine Blood Negative (Negative) Urine Nitrite Negative (Negative) Ur Leukocyte Esterase Moderate (2+) H (Negative) Urine RBC 0-2 (0-2) /HPF Urine WBC >50 H (0-5) /HPF Ur Squamous Epith Cells 3-5 (0-2) /HPF Calcium Oxalate Crystal Present Urine Bacteria None Seen (None Seen) Hyaline Casts 0-2 (0-2) /LPF Urine Test NEGATIVE (NEGATIVE) Critical Care Time Critical Care Time Critical Care Time: No Discharge Plan Discharge Clinical Impression: Urinary tract infection Patient Disposition: Home, Self-Care Instructions: Urinary Tract Infection in Women (ED) Additional Instructions: Take your medications as prescribed. If you were prescribed antibiotics today, it is important that you take your medication to their entirety, do not skip any doses, do not finish them early. Follow-up with your primary care provider this week. Return to the emergency department with new or worsening symptoms. Such as fevers, chills, chest pain, shortness of breath, nausea, vomiting, dizziness, headache, vision changes, lethargy, flank pain In case of emergency call 911 Pyridium is a medication that helps with symptoms. This can make your urine bright orange/knee on collared this is normal. Prescriptions: New cefuroxime axetil 250 mg tablet 250 mg PO BID 7 Days Qty: 14 0RF phenazopyridine [Pyridium] 100 mg tablet 200 mg PO TID 2 Days Qty: 6 0RF No Action doxycycline hyclate 100 mg tablet 100 mg PO BID 5 Days Qty: 10 0RF cephalexin 500 mg capsule 500 mg PO BID 5 Days Qty: 10 0RF Referrals: Physician,Unknown J [Primary Care Provider] - 2 days Stand Alone Forms: Work/School Release
[2022-09-16 01:20] LABS: UPreg QC Valid YES; Urine Pregnancy NEGATIVE (NEGATIVE)
== END 2022-09-16 01:40 | disposition home or self-care (01) ==
PROVIDERS: Emergency Provider Internal Medicine
DX: N39.0 Urinary tract infection, site not specified (principal); R30.0 Dysuria; R39.15 Urgency of urination; Z79.899 Other long term (current) drug therapy
CPT/HCPCS: 81001; 81025; 87086; 87088; 87186; 99282; 99283

== ENCOUNTER 2022-11-18 09:26 | Emergency (ER) | payer OTHER, SELFPAY ==
[2022-11-18 09:29] VITALS: BP 137/80; PULSE 64; RESP 18; TEMP 36.4; O2SAT 99; BMI 20.5
--- NOTE | 2022-11-18 11:22 | ED.FEMALEGU ---
HPI - Female Genitourinary General Chief complaint: Urogenital-Female Stated complaint: UTI Time Seen by Provider: 11/18/22 11:21 Source: patient Mode of arrival: ambulatory Limitations: no limitations History of Present Illness HPI Narrative: Darlene is a 32 year old female c/o suprapubic pain and urinary urgency/frequency since Friday night. States she has a history of frequent urinary tract infections and this is comparable to prior. She denies other constitutional symptoms, denies flank/abdominal pain. Pain is suprapubic in nature, constant, and with urethral burning. She denies provocation or relief. MD elicited complaint: UTI Pertinent past history: recurrent UTIs and IUD Onset (ago): day(s) Location of symptoms: suprapubic Female Urogenital Radiation: Non-Radiating Consistency: constant Urinary symptoms: Urgency and Frequency Possible : unsure if Related Data Previous Rx's Medication Instructions Recorded cephalexin 500 mg capsule 500 mg PO BID 5 days #10 caps 07/12/22 doxycycline hyclate 100 mg tablet 100 mg PO BID 5 days #10 tabs 07/12/22 cefuroxime axetil 250 mg tablet 250 mg PO BID 7 days #14 tabs 09/16/22 phenazopyridine 100 mg tablet 200 mg PO TID 2 days #6 tabs 09/16/22 (Pyridium) cephalexin 500 mg capsule 500 mg PO Q6H 7 days #28 caps 11/18/22 Allergies Allergy/AdvReac Type Severity Reaction Status Date / Time Sulfa (Sulfonamide Allergy Mild HIVES Verified 09/16/22 00:34 Antibiotics) [SULFA (SULFONAMIDE ANTIBIOTICS)] nisoldipine [Sular] Allergy Unknown Unknown Verified 09/16/22 00:34 sulfamethoxazole Allergy Unknown SWELLING Verified 09/16/22 00:34 [From BACTRIM] trimethoprim [From BACTRIM] Allergy Unknown SWELLING Verified 09/16/22 00:34 Sulfa Allergy Unknown Unknown Uncoded 09/16/22 00:34 Review of Systems Constitutional: Constitutional: Reports no additional constitutional complaints, Denies chills, Denies fever(s) and Denies night sweats Eyes: Eyes: Reports no additional eye complaints, Denies blurry vision, Denies change in vision, Denies diplopia, Denies eye discharge, Denies loss of vision and Denies eye pain ENT: Denies dizziness Cardiovascular: Cardiovascular: Reports no additional cardiovascular complaints, Denies chest pain, Denies lightheadedness, Denies Loss of Consciousness and Denies dyspnea Respiratory: Respiratory: Reports no additional respiratory complaints and Denies dyspnea Gastrointestinal: Gastrointestinal: Reports no additional gastrointestinal complaints, Denies abdominal pain, Denies melena, Denies hematochezia, Denies change in bowel habits and Denies change in stool character Genitourinary: Genitourinary: Denies hematuria, Denies urinary frequency, Denies dysuria, Denies urinary incontinence, Denies urinary hesitancy and Reports urinary urgency (urgency, frequency) Musculoskeletal: Musculoskeletal: Reports no additional musculoskeletal complaints, Denies numbness and Denies tingling Integumentary/Breasts: Skin/Breast: Reports system reviewed and no additional complaints, except as docu Neurologic: Reports system reviewed and no additional complaints, except as documented, Denies dizziness, Denies loss of vision, Denies numbness and Denies tingling Psychiatric: Psychiatric: Reports no additional psychiatric complaints Endocrine: Endocrine: Reports no additional endocrine complaints Hematologic/Lymphatic: Hematologic/Lymphatic: Reports no additional hematologic/lymphatic complaints Allergic/Immunologic: Allergic/Immunologic: Reports no additional allergic/immunologic complaints PMFSH Past Medical History Attestation statement: The following information was validated with the patient. Source: old records reviewed and nursing notes reviewed Social History Social History Advance Directives: No Advance Directives Information Provided: No Physical Exam Vital Signs: Vital Signs: Last Vital Signs Temp 97.6 F 11/18/22 09:29 Pulse 64 11/18/22 09:29 Resp 18 11/18/22 09:29 BP 137/80 11/18/22 09:29 Pulse Ox 99 11/18/22 09:29 O2 Del Method 11/18/22 09:29 BMI result Body Mass Index 20.5 Const: General: cooperative, no acute distress, alert and awake Nutritional Appearance: well nourished Orientation/consciousness: patient oriented x3 Limitations: no limitations HEENT: Head: Yes normal to inspection and Yes atraumatic Ears: hearing grossly normal bilaterally and external ears normal General nose exam: Normal external nose present, no nasal discharge noted and no epistaxis Face and sinus: Yes normal facial exam, No abrasion and No laceration Mouth: Normal oral and palatal mucosa present, no drooling and no muffled voice Eyes: General: appearance normal, both eyes and all related structures Alignment and Position: alignment abnormal right exotropia Periorbital: periorbital findings normal Eyelids: Yes eyelids normal Conjunctivae: conjunctivae normal Pupils: Equal, round and reactive pupils present EOM: EOMs intact bilaterally Neck: Neck: Yes normal visual inspection, Yes full ROM and Yes no lymphadenopathy Chest: Chest palpation & inspection: normal inspection of the chest Resp: Effort & Inspection: normal respiratory effort and able to speak in complete sentences Auscultation: clear to auscultation bilaterally Cardio: Palpation: normal PMI Rate: regular rate Rhythm: regular rhythm Heart sounds: S1 normal heart sound present and S2 normal heart sound present GI: Inspection: Yes normal to inspection Palpation (GI): Soft to palpation, not firm, nontender, no guarding and not rigid Auscultation: normal bowel sounds : General: Yes no CVA tenderness Back/Spine/Pelvis: Back: no CVA tenderness Neuro: General: patient oriented x3 and moves all extremities Cranial nerves: Yes Equal, round and reactive pupils present Cognition (Neuro): normal cognition Motor exam (neuro): 5/5 motor strength present throughout Sensory Exam: Normal double simultaneous stimulation for sensation Coordination: [id number] test normal Extrem: General: Yes normal to inspection, Yes full ROM and Yes capillary refill normal Psych: Appearance: grossly normal Mental Status: mental status grossly normal Affect: normal affect Attitude: cooperative Thought process: Normal thought process present Thought content: Normal thought content present Insight: Good insight present (Psych) Medical Decision Making Medical Decision Making MDM Narrative: Patient is a 32 year old assigned female at with a history of frequent UTIs presenting to the emergency department today with a possible UTI. Patient's physical exam was unremarkable. Patient's blood work was unremarkable. Patient's urine showed an acute UTI. I explained my physical exam findings as well as all test results to the patient. I answered all questions asked by the patient. I stressed the importance of the patient taking her medication as prescribed. I stressed the importance of the patient following up with her primary care provider. I stressed the importance of the patient returning to the emergency department immediately if her symptoms were to worsen or if she were to develop any dizziness, shortness of breath, difficulty breathing, chest pain, blurry vision, loss of vision, nausea, vomiting, abdominal pain, fever, chills, back pain, or any other complaints. Patient verbalized agreement and understanding with this treatment plan and discharge. Differential Diagnosis Differential Diagnoses: The differential diagnosis associated with the presentation includes UTI Lab Data MDM Lab Attestation statement: I reviewed the patient's lab results. 11/18/22 12:09 11/18/22 12:09 Labs: Lab Results 11/18/22 11/18/22 11/18/22 Range/Units 11:22 11:22 12:09 WBC 7.0 (4.8-10.8) X10*3/uL RBC 4.84 (4.20-5.50) X10*6/uL Hgb 13.2 (12.0-16.0) g/dl Hct 38.9 (37.0-47.0) % MCV 80.4 (80.0-98.0) fL MCH 27.3 (27.0-33.0) pg MCHC 33.9 (31.0-35.0) g/dl RDW 13.2 (11.0-16.0) % Plt Count 335 (160-400) X10*3/uL MPV 8.9 L (9.4-12.3) fL Immature Gran % (Auto) 0.1 (0.0-0.4) % Neut % (Auto) 53.9 (45-73) % Lymph % (Auto) 33.9 (20-40) % [place] % (Auto) 6.4 (2-11) % Eos % (Auto) 5.3 H (0-4) % Baso % (Auto) 0.4 (0-2) % Lymph # (Auto) 2.4 (1.2-4.9) X10*3/uL [place] # (Auto) 0.5 (0.1-1.2) X10*3/uL Eos # (Auto) 0.4 (0.0-0.4) X10*3/uL Baso # (Auto) 0.0 (0.0-0.2) X10*3/uL Abs Immat Gran (auto) 0.01 (0.00-0.03) X10*3/uL Absolute Neuts (auto) 3.8 (2.0-8.3) x10*3/uL Absolute Nucleated RBC 0.000 (0.0-0.012) X10*3/uL Nucleated RBC % (auto) 0.0 (0.0-0.2) /100WBC Urine Color Yellow Urine Appearance Cloudy Urine pH 6.0 (5.0-9.0) Ur Specific [place] >= 1.030 H (1.005-1.025) Urine Protein Trace (Neg-Trace) mg/dL Urine Glucose (UA) Negative (Negative) mg/dL Urine Ketones Negative (Negative) mg/dL Urine Blood Small (1+) H (Negative) Urine Nitrite Negative (Negative) Ur Leukocyte Esterase Moderate (2+) H (Negative) Urine RBC 3-5 H (0-2) /HPF Urine WBC >50 H (0-5) /HPF Ur Squamous Epith Cells 3-5 (0-2) /HPF Urine Bacteria 1+ (None Seen) Hyaline Casts 0-2 (0-2) /LPF Urine Test NEGATIVE (NEGATIVE) Discharge Plan Discharge Clinical Impression: Urinary tract infection Patient Disposition: Home, Self-Care Instructions: Urinary Tract Infection in Women (ED) Additional Instructions: Follow up with your primary care provider. Return to the emergency department immediately if your symptoms worsen or if you develop any dizziness, shortness of breath, difficulty breathing, chest pain, blurry vision, loss of vision, nausea, vomiting, abdominal pain, fever, chills, back pain, or any other complaints. Prescriptions: New cephalexin 500 mg capsule 500 mg PO Q6H 7 Days Qty: 28 0RF No Action cefuroxime axetil 250 mg tablet 250 mg PO BID 7 Days Qty: 14 0RF phenazopyridine [Pyridium] 100 mg tablet 200 mg PO TID 2 Days Qty: 6 0RF doxycycline hyclate 100 mg tablet 100 mg PO BID 5 Days Qty: 10 0RF cephalexin 500 mg capsule 500 mg PO BID 5 Days Qty: 10 0RF [place] [facility] [place]] (Call to establish and follow up with a primary care provider. If you already have a primary care provider, please follow up with them. ) [facility] [place] [facility] [place]] (Call to establish and follow up with a primary care provider. If you already have a primary care provider, please follow up with them. ) [facility] [place] [facility] [place] Group] (Call to establish and follow up with a primary care provider. If you already have a primary care provider, please follow up with them. ) Interventions: ED Discharge Assessment Last Done: 11/18/22 12:21 Discharge Date/Time: 11/18/22 12:22 Print Language: Tunisian
--- NOTE | 2022-11-18 11:42 | PC.NURSE ---
call to phlebotomy to redraw labs- this nurse attempted in addition to the technician submarine cable equipment. per fish hatchery laborer, Michael will send someone from the lab
[2022-11-18 11:48] LABS: Appearance Urine Cloudy; Color Urine Yellow; Glucose Urine UA Negative (Negative); Leukocyte Esterase Urine Moderate (2+) (Negative); Nitrite Urine Negative (Negative); Specific Gravity - Urine >= 1.030 (1.005-1.025); UMIC TRIGGER UACC YES; Urine Blood Small (1+) (Negative); Urine Ketones Negative (Negative); Urine Protein Trace mg/dL (Neg-Trace)
[2022-11-18 11:59] LABS: UPreg QC Valid YES; Urine Pregnancy NEGATIVE (NEGATIVE)
[2022-11-18 12:08] LABS: Bacteria Urine 1+ (None Seen); Hyaline Casts Urine 0-2 /LPF (0-2); UACC Culture Trigger YES; WBC Urine >50 /HPF (0-5)
[2022-11-18 12:15] LABS: Basophils Percent Auto 0.4 % (0-2); Eosinophils Absolute Auto 0.4 X10*3/uL (0.0-0.4); Eosinophils Percent Auto 5.3 % (0-4); Hematocrit 38.9 % (37.0-47.0); Hemoglobin 13.2 g/dl (12.0-16.0); Imm Gran Abs Auto 0.01 X10*3/uL (0.00-0.03); Imm Gran Pct Auto 0.1 % (0.0-0.4); Lymphocytes Absolute Auto 2.4 X10*3/uL (1.2-4.9); Lymphocytes Percent Auto 33.9 % (20-40); MANUAL DIFF FLAG NO; Mean Corpuscular HGB Conc 33.9 g/dl (31.0-35.0); Mean Corpuscular Hemoglobin 27.3 pg (27.0-33.0); Mean Corpuscular Volume 80.4 fL (80.0-98.0); Mean Platelet Volume 8.9 fL (9.4-12.3); Monocytes Absolute Auto 0.5 X10*3/uL (0.1-1.2); Monocytes Percent Auto 6.4 % (2-11); Neutrophils Absolute Auto 3.8 x10*3/uL (2.0-8.3); Neutrophils Percent Auto 53.9 % (45-73); Platelet Count 335 X10*3/uL (160-400); Red Blood Count 4.84 X10*6/uL (4.20-5.50); Red Cell Distribution Width 13.2 % (11.0-16.0)
[2022-11-18 12:39] LABS: Alanine Aminotransferase 119 U/L (0-31); Albumin Level 4.1 g/dL (3.5-5.0); Alkaline Phosphatase 111 U/L (39-117); Anion Gap 14 (12-20); Aspartate Amino Transferase 62 U/L (5-31); Bilirubin Total 0.9 mg/dL (0.0-1.0); Blood Urea Nitrogen 20 mg/dL (9-16); Calcium 9.4 mg/dL (8.4-10.2); Carbon Dioxide 24 mmol/L (22-29); Chloride 106 mmol/L (96-108); Creatinine Clr Calc Pharmacy 81.8; Estimated Glomerular Filt Rate > 60; Glucose Random 93 mg/dL (60-115); Potassium 4.2 mmol/L (3.3-5.1); Sodium 140 mmol/L (135-145); Total Protein 7.7 g/dL (6.5-8.0)
== END 2022-11-18 12:22 | disposition home or self-care (01) ==
PROVIDERS: Emergency Provider Emergency Medicine
DX: N39.0 Urinary tract infection, site not specified (principal); B96.20 Unspecified Escherichia coli [E. coli] as the cause of diseases classified elsewhere
CPT/HCPCS: 36415; 80053; 81001; 81025; 85025; 87086; 87088; 87186; 99282; 99283

== ENCOUNTER 2024-12-10 00:42 | Emergency (ER) | payer OTHER, SELFPAY ==
[2024-12-10] VITALS (7 sets, daily range): BP systolic 119–140; BP diastolic 75–98; PULSE 92–109; RESP 16–18; TEMP 36.5–37; O2SAT 93–98; BMI 37.2
--- NOTE | ~2024-12-10 | US_ITS ---
EXAMINATION: Ultrasound pelvis. CLINICAL INFORMATION: Cystic lesion in the right adnexa identified on CT dated December 10, 2024. TECHNIQUE: Real-time transabdominal and transvaginal pelvic ultrasound performed using grayscale and color Doppler technique. COMPARISON: Correlated to CT dated December 10, 2024. FINDINGS: Uterus is in anteversion flexion position with normal morphology and echotexture and measures 10 x 4 x 5 cm. No discrete uterine fibroids. There is an intrauterine contraceptive device in satisfactory position. The endometrial stripe measures 7 mm. The cervix is closed without abnormal lesions. Right ovary measures 9 x 7 x 9 cm. Volume is 292 cc. There is a large, 8.8 cm well-defined lobulated anechoic lesion without internal echoes septations or nodular components nor flow on color Doppler interrogation. There is flow on color Doppler interrogation of the right ovary. Left ovary measures 4 x 2 x 3 cm. Volume is 9 cc. No solid or cystic lesion. There is flow on color Doppler interrogation. No free fluid in the cul-de-sac. US/US pelvic ovarian doppler IMPRESSION: Large, 8.8 cm simple cyst, right ovary. No ovarian torsion. Intrauterine contraceptive device in place. Electronically signed by: Herberth Conway MD 12/10/2024 08:31 AM EST
--- NOTE | ~2024-12-10 | US_ITS ---
EXAMINATION: Ultrasound pelvis. CLINICAL INFORMATION: Cystic lesion in the right adnexa identified on CT dated December 10, 2024. TECHNIQUE: Real-time transabdominal and transvaginal pelvic ultrasound performed using grayscale and color Doppler technique. COMPARISON: Correlated to CT dated December 10, 2024. FINDINGS: Uterus is in anteversion flexion position with normal morphology and echotexture and measures 10 x 4 x 5 cm. No discrete uterine fibroids. There is an intrauterine contraceptive device in satisfactory position. The endometrial stripe measures 7 mm. The cervix is closed without abnormal lesions. Right ovary measures 9 x 7 x 9 cm. Volume is 292 cc. There is a large, 8.8 cm well-defined lobulated anechoic lesion without internal echoes septations or nodular components nor flow on color Doppler interrogation. There is flow on color Doppler interrogation of the right ovary. Left ovary measures 4 x 2 x 3 cm. Volume is 9 cc. No solid or cystic lesion. There is flow on color Doppler interrogation. No free fluid in the cul-de-sac. US/US pelvic and transvaginal IMPRESSION: Large, 8.8 cm simple cyst, right ovary. No ovarian torsion. Intrauterine contraceptive device in place. Electronically signed by: Herberth Conway MD 12/10/2024 08:31 AM BABAR
--- NOTE | ~2024-12-10 | CT_ITS ---
CLINICAL HISTORY: pain Exam: CT abdomen and pelvis with intravenous contrast. Comparison: None. Findings: CT abdomen: Lung bases are clear. No acute bony lesions. Fluid distention of a moderate-sized hiatal hernia. This is a mixed sliding and paraesophageal hiatal hernia. Subdiaphragmatic stomach is decompressed. Fluid-filled loops of borderline distended small bowel throughout the abdomen and pelvis. No free fluid or free air. Liver is enlarged measuring 19.6 cm in long axis. No focal hepatic lesions. Main portal vein is patent. Moderate-sized splenule. Spleen is otherwise unremarkable. Pancreas, gallbladder, adrenal glands, and kidneys are unremarkable for acute findings. Hyperdensity within the renal collecting systems is related to contrast. No perinephric stranding. Small retroperitoneal lymph nodes all measure less than [address] pelvis: Appendix is normal. Moderate stool throughout the majority of the colon. Liquid stool is seen from the cecum to the proximal transverse colon. Fluid-filled loops of borderline dilated small bowel are seen within the pelvis. IUD is seen within the mid uterus. Cyst anterior and slightly to the right of the uterus measuring 6.7 x 8.2 cm in size. This likely arises from the right ovary. No adjacent inflammatory stranding. Urinary bladder is only minimally distended. Impression: 1. Acute symptoms are likely related to the fluid-filled large and small bowel most characteristic of an infectious or inflammatory enterocolitis. No findings to suggest obstruction at this time. 2. Moderate-sized hiatal hernia. 3. Hepatomegaly. 4. Cyst anterior to the uterus as above, likely arising from the right ovary. Given its size, further evaluation with a pelvic ultrasound is suggested. This document has been electronically signed by: Dano Lay MD on 12/10/2024 04:35:47
--- NOTE | 2024-12-10 01:45 | PC.NURSE ---
pt change into hospital attire, pt a difficult stick, several attempt to get labs and line.
--- OUTSIDE RECORDS SUMMARY | 2024-12-10 01:51 | XMS_ITS | Clinical Summary ---
Author Organization [facility] Address [address] [place] [address] Care Team Providers Care Hand Inspector Name Role Phone Unavailable Primary Care Provider Unavailabl e Surgical History Surgery Date Site/Laterality Comments KIDNEY SURGERY PROCEDURE:KIDNEY SURGERY Medical History Medical History Date Comments Asthma DX:Asthma Social History Tobacco Use Types Packs/Day Years Used Date Smoking Tobacco: Every Day Cigarettes Smokeless Tobacco: Never Alcohol Use Standard Drinks/Week Comments Not Currently 0 (1 standard drink = 0.6 oz pur e alcohol) Comments Unknown Sex and Gender Information Value Date Recorded Sex Assigned at Not on file Legal Sex Female 5:13 PM EST Gender Identity Not on file Sexual Orientation Not on file Obstetrics History Plan of Treatment Health Maintenance Due Date Last Done Comments DTaP,Tdap,and Td Vaccines (1 - Tdap) 2008 Hepatitis B Vaccines (1 of 3 - 19+ 3-dose series) 2008 Pneumococcal Vaccine: Pediat rics (0 to 5 Years) and At-Risk Patients (6 to 64 Years) (1 of 2 - PCV) 2008 Cervical Cancer Screening: P ap Smear 2010 Depression Screening 09/14/2022 HIV Screening 09/14/2022 Hepatitis C Screening 09/14/2022 Social Influencers of Health Screening 09/14/2022 COVID-19 Vaccine ( - 2023-2 5 season) 2024 Influenza Vaccine (#1) 2024 HIB Vaccines Aged Out No longer eligi ble based on patient's age to complete this topic HPV Vaccines Aged Out No longer eligi ble based on patient's age to complete this topic Hepatitis A Vaccines Aged Out No long er eligible based on patient's age to complete this topic IPV Vaccines Aged Out No longer eligi ble based on patient's age to complete this topic MMR Vaccines Aged Out No longer eligi ble based on patient's age to complete this topic Meningococcal ACWY Vaccine Aged Out N o longer eligible based on patient's age to complete this topic Meningococcal B Vacine Aged Out No lo nger eligible based on patient's age to complete this topic RSV Immunization Patients Un leslie 20 months Aged Out No longer eligible b ased on patient's age to complete this topic Varicella Vaccines Aged Out No longer eligible based on patient's age to complete this topic
--- OUTSIDE RECORDS SUMMARY | 2024-12-10 01:51 | XMS_ITS | Clinical Summary ---
Author Organization [facility] Address [address] [place] [id number] Care Team Providers Care Multimedia Editor Name Role Phone Unavailable Primary Care Provider Unavailabl e Allergies Active Allergy Reactions Criticality Noted Date Comments Sulfamethoxazole-Trimethoprim Swelling High 2021 Medications Medication Sig Dispensed Refills Start Date End Date Status doxycycline (VIBRA-TABS) 100 MG tablet Take 1 tablet (100 mg total) by mouth 2 (two) times a day. 20 tablet 0 12/09/2021 Active Active Problems No known active problems Social History Tobacco Use Types Packs/Day Years Used Date Smoking Tobacco: Every Day Cigarettes 0.5 Smokeless Tobacco: Never Alcohol Use Standard Drinks/Week Comments Not Currently 0 (1 standard drink = 0.6 oz pur e alcohol) Sex and Gender Information Value Date Recorded Sex Assigned at Female 12/09/2021 10:37 PM EST Gender Identity Not on file Sexual Orientation Not on file Job Start Date Occupation Industry Not on file Not on file Not on file Last Filed Vital Signs Vital Sign Reading Time Taken Comments Blood Pressure 163/85 12/10/2021 12:24 AM EST Pulse 83 12/10/2021 12:24 AM EST Temperature 36.7 ??C (98.1 ??F) 12/09/2021 10:[address] Respiratory Rate 16 12/10/2021 12:24 AM EST Oxygen Saturation 100% 12/10/2021 12:24 AM EST Inhaled Oxygen Concentration - - Weight 54.5 kg (120 lb 4 oz) 12/09/2021 10:56 PM EST Height - - Body Mass Index - - Plan of Treatment Not on file
--- OUTSIDE RECORDS SUMMARY | 2024-12-10 01:51 | XMS_ITS | Data Portability ---
Author Organization W[facility]ON Rodriguez devin [address] Address [address] [place] [address] Assessment No assessment recorded. Plan of Treatment Reminders Order Date Submit Date Provider Last Modified By Organization Details Last Modified Time Details Appointments None recorded. Lab None recorded. Referral None recorded. Procedures None recorded. Surgeries None recorded. Imaging None recorded. Medication Orders amoxicillin 875 mg-potassiu m clavulanate 125 mg tablet 2023 [place] [address] [address], [address] [place] [address], [id number], 4 12:28:20 Allergy Relief (fluticason e) 50 mcg/actuati on nasal spray,suspe nsion 2023 024 [facility]- 0180, [address] [place] [address], [id number], 4 12:28:21 Patient TargetsNo targets recorded. Patient InstructionsNo instructions recorded. Reason for Referral None Reported. Problems Name Problem SNOMED Code Status Onset Date Resolution Date Notes Provider Name and Address Organization Details Recorded Time Anxiety 90576653 Active Stefany welsh PA - [facility] 11:57:23 Asthma 777993270 Active Stefany welsh PA - [facility] 11:57:29 Pancreatitis 19630120 Active Stefany welsh PA - [facility] 11:57:53 Acute bilateral otitis media 051877007 Active 2023 Tera Rui, [employer] [address] [place], [address] , [place] - [facility] 4 12:26:53 Problem Notes None recorded. Medical Equipment None Reported. Allergies Allergen ID Allergen Name Allergen Category Reaction Reaction Severity Criticality Documentation Date Start Date Code Code System Note Provider Name and Address Organization Details Recorded Time 371314 Substance with sulfonami de structure and antibacte rial mechanism of action (substanc e) medicatio n anaphylax is Not available Not available 07/06/2024 [id number] Stefany Marquez [facility], [place] - [facility] 4 11:55:16 Medications Name Sig Start Date Stop Date Status Note LastModified by Organization Details LastModified Time acetaminoph en 325 mg tablet TAKE 2 TABLETS BY MOUTH 3 TIMES DAILY NEEDED FOR FEVER active Not Available Not Available No t Available paroxetine 10 mg tablet 07/06 completed Not Available Not Available Not Available trazodone 50 mg tablet active Not Available Not Available Not Available polyethylen e glycol 3350 17 gram oral powder packet active Not Available Not Available Not Available prazosin 1 mg capsule active Not Available Not Available N ot Available prednisone 20 mg tablet active Not Available Not Available Not Available hydroxyzine pamoate 50 mg capsule TAKE 1 CAPSULE ORAL TWICE A DAY NEEDED ANXIETY active Not Available Not Available No t Available hydroxyzine HCl 50 mg tablet 07/06 completed Not Available Not Available Not Available doxycycline monohydrate 100 mg tablet TAKE 1 TABLET BY MOUTH TWICE A DAY 07/06 completed Not Available Not Available Not Available amoxicillin 500 mg tablet 07/06 completed Not Available Not Available Not Available modafinil 200 mg tablet TAKE 1 TABLET BY MOUTH EVERY DAY 07/06 completed Not Available Not Available Not Available bisacodyl 10 mg rectal suppository 07/06 completed Not Available Not Available Not Available mirtazapine 30 mg tablet TAKE 1 TABLET BY MOUTH EVERY DAY IN THE EVENING active Not Available Not Available No t Available nicotine 21 mg/24 hr daily transdermal patch APPLY 1 PATCH DIRECTED ONCE DAILY 07/06 completed Not Available Not Available Not Available omeprazole 20 mg capsule,del ayed release 07/06 completed Not Available Not Available Not Available Banophen 25 mg capsule TAKE 1-2 CAPSULES BY MOUTH AT BEDTIME NEEDED active Not Available Not Available No t Available ibuprofen 600 mg tablet active Not Available Not Available Not Available ondansetron 4 mg disintegrat ing tablet TAKE 1 TABLET UNDER THE TONGUE AND DISSOLVE EVERY 6 HOURS NEEDED FOR NAUSEA/VO MITING 07/06 completed Not Available Not Available Not Available prazosin 2 mg capsule TAKE 1 CAPSULE BY MOUTH EVERY DAY AT NIGHT active Not Available Not Available No t Available amoxicillin 875 mg-potassiu m clavulanate 125 mg tablet Take 1 tablet every 12 hours by oral route with meal(s) for 10 days, for ear infection . 2023 active Not Available Not Available Not Avai lable Ventolin HFA 90 mcg/actuati on aerosol inhaler active Not Available Not Available Not Available nicotine (polacrilex ) 2 mg buccal lozenge 07/06 completed Not Available Not Available Not Available Stool Softener-La xative 8.6 mg-50 mg tablet active Not Available Not Available Not Available quetiapine 50 mg tablet TAKE 1 TABLET BY MOUTH THREE TIMES A DAY NEEDED ANXIETY AND AGITATION 07/06 completed Not Available Not Available Not Available peg 3350-electr olytes 236 gram-22.74 gram-6.74 gram-5.86 gram solution active Not Available Not Available Not Available melatonin 5 mg tablet TAKE 1 TABLET BY MOUTH EVERYDAY AT BEDTIME 07/06 completed Not Available Not Available Not Available naloxone 4 mg/actuatio n nasal spray 07/06 completed Not Available Not Available Not Available Allergy Relief (fluticason e) 50 mcg/actuati on nasal spray,suspe nsion [place] 1 spray every day by intranasa l route as directed for 90 days, for nasal congestio n. 2023 active Not Available Not Available Not Avai lable Vitals Date Recorded Body height Body mass index (BMI) Body weight Pain severity - 0-10 verbal numeric rating [Score] - Reported Respiratory rate Body temperature Heart rate Oxygen saturation Oxygen saturation in Arterial blood by Pulse oximetry Systolic blood pressure Diastolic blood pressure Provider Name and Address Organization Details Last Updated DateTime 4 162.56 cm 42.2 kg/m2 057693. 72 g 6 16 /min 98.7 [degF] 83 /min 96 % 96 % 111 mm[Hg] 77 mm[Hg] Stefany MONTERO - [facility] 12:00:15 Social History Question Answer Notes LastModified by Organizat ion Details LastModified Time Tobacco Smoking Status Never Smoker Stefanytim NoonanWINSTON pierce - [facility] 07/06/2024 11:58:09 What Is Your Level Of Alcohol Consumption? None [email or web address] Information not available 07/06/2024 Are You Currently Employed? No [email or web address] Information not available 07/06/2024 Do You Or Have You Ever Used E-cigarettes Or Vape? Current User Of Electronic Cigarettes [email or web address] Information not available 07/06/2024 Have You Had A Flu Shot This Season? No [email or web address] Information not available 07/06/2024 Do You Use Any Illicit Or Recreational Drugs? No Information not available 07/06/2024 Have You Recently Traveled Abroad? No Information not available 07/06/2024 Do You Or Have You Ever Used Any Other Forms Of Tobacco Or Nicotine? Yes [email or web address] Information not available 07/06/2024 Sex: Unknown Functional Status None recorded. Mental Status None recorded. Family History Nothing Reported. Medical History No medical history recorded. Gynecological HistoryNo gynecological history recorded. Obstetrics History GPAL:G 0 P 0 0 0 0 Past Encounters Encounter ID Performer Location Encounter Start Date Encounter Closed Date Diagnosis/Indication Diagnosis SNOMED-CT Code Diagnosis ICD10 Code Diagnosis Note [id number] [address] [address] 05/08/2018 15:11:41 05/08/2018 16:59:44 [id number] [address] [address] 04/02/2018 13:12:54 04/02/2018 13:46:13 [id number] [address] [place] [address] 10/26/2018 14:19:21 10/26/2018 14:45:45 [id number] [address] [place] [address] 09/11/2018 09:45:17 09/11/2018 10:14:27 [id number] [address] [facility] [place] [address] 09/02/2018 17:26:26 09/02/2018 18:56:31 [id number] [place] [address] [facility] [place] [address] 07/06/2024 11:23:53 07/06/2024 12:28:42 Acute bilateral otitis media 500501730 H66.93 An ear infection may start with a cold and affect the middle ear (otitis media). It can hurt a lot. Most ear infections clear up on their own in a couple of days and do not need antibiotic s. Also, antibiotic s do not work against viruses, which may be the cause of your infection. Regular doses of pain relievers are the best way to reduce your fever and help you feel better. How can you care for yourself at home? Take pain medicines exactly as directed. If the doctor gave you a prescripti on medicine for pain, take it as prescribed . If you are not taking a prescripti on pain medicine, take an over-the-c ounter medicine, such as acetaminop hen (Tylenol), ibuprofen (Advil, Motrin), or naproxen (Aleve). Read and follow all instructio ns on the label. Do not take two or more pain medicines at the same time unless the doctor told you to. Many pain medicines have acetaminop hen, which is Tylenol. Too much acetaminop hen (Tylenol) can be harmful. Plan to take a full dose of pain reliever before bedtime. Getting enough sleep will help you get better. Try a warm, moist face cloth on the ear. It may help relieve pain. If your doctor prescribed antibiotic s, take them as directed. Do not stop taking them just because you feel better. You need to take the full course of antibiotic s. Health Concerns Section Related Observation LastModified by Organization Detai ls LastModified Time None Recorded Concern Status LastModified by Organization Details LastModified Time None Recorded Advance Directives Directive None Recorded Payers Encounter Date Sequence Insurance Name Policy Number Policy Real Covered Member ID Real Member ID Guarantor Name 05/08/2018 1 [facility] [place] [facility] [place]MEDICAID HMO) Darlene Aldana [id number] Darlene Aldana 09/02/2018 1 [facility] (MEDICAID HMO) Darlene Aldana [id number] Darlene Aldana 09/11/2018 1 [facility] (MEDICAID HMO) Darlene Aldana [id number] Darlene Aldana 10/26/2018 1 [facility] (MEDICAID HMO) Darlene Aldana [id number] Darlene Aldana 07/06/2024 1 [facility] (MEDICAID HMO) Darlene Aldana [id number] Darlene Aldana Notes Date Note Type Note Provider Name and Address Organization Details Recorded Time 07/06/2024 text/html CongestionReport ed bypatient.Notes:nasal congestion with post nasal drip x 3 days. denies nay fever or fever with chills. no SOB or respiratory distress.Ear Pain Brief HPIReported bypatient.Location:pain radiates to neck; bilateral Onset/Timing:intermitte nt pain; gradual onset Duration:occurs daily; sensation/episode variable length Quality:aching pain;sharp pain Severity:getting worse; current pain 5/10 Context:recent ear infection Alleviating factors:ototopical antibiotics: ; nasal steroid spray Aggravating factors:sinus infections; allergies; irrigation of ear Associated Symptoms:Cough;nasal congestion;nasal discharge Tera Fabian NP [address] [place], [address], [place] - [facility] 07/06/2024 12:28:11 OBGyn Episode No OBEpisode recorded.
--- NOTE | 2024-12-10 02:05 | PC.NURSE ---
Notified WINSTON Grande, unable to collect labs, pt is for natalieta fadi IV
[2024-12-10 02:10] LABS: Appearance Urine Cloudy; Color Urine Dark Yellow; Glucose Urine UA Negative (Negative); Leukocyte Esterase Urine Negative (Negative); Nitrite Urine Negative (Negative); PH 5.5 (5.0-9.0); Specific Gravity - Urine >= 1.030 (1.005-1.025); UMIC TRIGGER UACC YES; Urine Blood Negative (Negative); Urine Ketones Trace mg/dL (Negative); Urine Protein 30 (1+) mg/dL (Neg-Trace)
[2024-12-10 02:11] LABS: UPreg QC Valid YES; Urine Pregnancy NEGATIVE (NEGATIVE)
[2024-12-10 02:28] LABS: Bacteria Urine 2+ (None Seen); RBC Urine 0-2 /HPF (0-2); UACC Culture Trigger YES
[2024-12-10 02:38] LABS: MANUAL DIFF FLAG NO
[2024-12-10 02:42] LABS: Basophils Absolute Auto 0.1 X10*3/uL (0.0-0.2); Basophils Percent Auto 0.3 % (0-2); Eosinophils Absolute Auto 0.2 X10*3/uL (0.0-0.4); Hematocrit 40.7 % (37.0-47.0); Hemoglobin 14.6 g/dl (12.0-16.0); Imm Gran Abs Auto 0.05 X10*3/uL (0.00-0.03); Imm Gran Pct Auto 0.3 % (0.0-0.4); Lymphocytes Absolute Auto 1.9 X10*3/uL (1.2-4.9); Lymphocytes Percent Auto 11.8 % (20-40); Mean Corpuscular HGB Conc 35.9 g/dl (31.0-35.0); Mean Corpuscular Hemoglobin 27.1 pg (27.0-33.0); Mean Corpuscular Volume 75.7 fL (80.0-98.0); Mean Platelet Volume 9.4 fL (9.4-12.3); Monocytes Absolute Auto 0.6 X10*3/uL (0.1-1.2); Neutrophils Absolute Auto 12.9 x10*3/uL (2.0-8.3); Neutrophils Percent Auto 82.6 % (45-73); Platelet Count 342 X10*3/uL (160-400); Red Blood Count 5.38 X10*6/uL (4.20-5.50); Red Cell Distribution Width 14.2 % (11.0-16.0); White Blood Count 15.6 X10*3/uL (4.8-10.8)
[2024-12-10] MEDS: Ketorolac Tromethamine 15 MG/ML VIAL IVPUSH (02:47)
[2024-12-10] MEDS: ondansetron HCL 4 MG/2 ML VIAL IVPUSH ×3 (02:47→08:21)
[2024-12-10] MEDS: 0.9 % Sodium Chloride 500 ML IV (02:51)
--- NOTE | 2024-12-10 03:02 | PC.NURSE ---
IV placed by ultra sound by provider Justin Grande medicated per lab.
[2024-12-10 03:06] LABS: Alkaline Phosphatase 141 U/L (39-117)
[2024-12-10 03:07] LABS: Alanine Aminotransferase 15 U/L (0-31); Albumin Level 4.4 g/dL (3.5-5.0); Anion Gap 16 (12-20); Aspartate Amino Transferase 21 U/L (5-31); Bilirubin Direct 0.1 mg/dL (0.0-0.5); Bilirubin Total 0.5 mg/dL (0.0-1.0); Blood Urea Nitrogen 18 mg/dL (9-16); Calcium 9.5 mg/dL (8.4-10.2); Carbon Dioxide 20 mmol/L (22-29); Chloride 108 mmol/L (96-108); Creatinine Clr Calc Pharmacy 103.9; Estimated Glomerular Filt Rate > 60; Glucose Random 114 mg/dL (60-115); HCG Quantitative < 2 mIU/mL; Lipase 31 U/L (8-78); Potassium 3.9 mmol/L (3.3-5.1); Sodium 140 mmol/L (135-145); Total Protein 8.4 g/dL (6.5-8.0)
[2024-12-10] MEDS: iohexoL 350 MG/ML 100 ML INFUS..BTL 85 ML IV (03:32)
--- NOTE | 2024-12-10 03:53 | PC.NURSE ---
pt taken to ct scan, awaiting results.
--- NOTE | 2024-12-10 04:48 | ED_ITS ---
HPI - Abdominal Pain General Chief Complaint: Abdominal Pain Stated Complaint: pancreatic pain Time Seen by Provider: 12/10/24 02:32 Source: patient Limitations: no limitations History of Present Illness ED Provider: Josefina Bob PA-C HPI narrative: 34-year-old female with a history of prior IV drug abuse, currently on methadone, morbid obesity, presents with the abdominal pain since earlier today. Patient's abdominal pain is generalized, unable to describe the nature of her discomfort. Associated nausea, vomiting, diarrhea, chills. No sick contacts with similar symptoms, no recent travel, no recent use of antibiotics, no hospitalizations. Denies fever or cough cold symptoms. Related Data Previous Rx's ?Medication ?Instructions ?Recorded cephalexin 500 mg capsule 500 mg PO BID 5 days #10 caps 07/12/22 doxycycline hyclate 100 mg tablet 100 mg PO BID 5 days #10 tabs 07/12/22 cefuroxime axetil 250 mg tablet 250 mg PO BID 7 days #14 tabs 09/16/22 phenazopyridine 100 mg tablet 200 mg (2 x 100 mg) PO TID 2 days 09/16/22 (Pyridium) #6 tabs cephalexin 500 mg capsule 500 mg PO Q6H 7 days #28 caps 11/18/22 amoxicillin 875 mg-potassium 1 tab PO BID #13 tabs 12/10/24 clavulanate 125 mg tablet Allergies Allergy/AdvReac Type Severity Reaction Status Date / Time Sulfa (Sulfonamide Allergy Mild HIVES Verified 12/10/24 00:50 Antibiotics) [SULFA (SULFONAMIDE ANTIBIOTICS)] nisoldipine [Sular] Allergy Unknown Unknown Verified 12/10/24 00:50 sulfamethoxazole Allergy Unknown SWELLING Verified 12/10/24 00:50 [From BACTRIM] trimethoprim [From BACTRIM] Allergy Unknown SWELLING Verified 12/10/24 00:50 Sulfa Allergy Unknown Unknown Uncoded 12/10/24 00:50 Review of Systems Review of Systems Yes all other systems are reviewed and are negative Constitutional: Reports chills, Denies fatigue, Denies fever(s) and Denies malaise Cardiovascular: Denies chest pain and Denies dyspnea Respiratory: Denies cough and Denies dyspnea Gastrointestinal: Reports abdominal pain, Reports diarrhea, Reports nausea and Reports vomiting Endocrine: Denies fatigue PMFSH Past Medical History Attestation statement: The following information was validated with the patient. Social History Social History Smoked in Last 30 Days: No Use of substances other than those prescribed or required for medical reasons: No Substance Use Type: Former Substance User and Methamphetamine Advance Directives: No Advance Directives Information Provided: Yes Do you have a plan to hurt others: No Plan Physical Exam ED Vital Signs: Vital Signs - 24 hr 12/10/24 00:49 12/10/24 04:16 Temperature 97.7 F 97.9 F Pulse Rate 97 92 Respiratory Rate 16 18 Blood Pressure 134/94 H 128/78 Pulse Oximetry 95 96 Oxygen Delivery Method Room Air Room Air BMI result Body Mass Index 37.2 Const Other: Alert Orientation/consciousness: patient oriented x3 Resp Effort & Inspection: normal respiratory effort Cardio Other: Normal peripheral perfusion GI Other: Abdomen is soft, nondistended, obese, mild tenderness throughout without guarding Skin Other: Warm dry no rash Neuro General: patient oriented x3, no focal motor deficits and CN's II-XI intact bilaterally Psych Other: Cooperative Procedures Procedure Narrative Procedure Narrative: Ultrasound-guided IV 20 gauge 2-1/2 inch IV placed in left upper extremity, adequate blood return, flushes well, secured with Tegaderm Course Course Course Narrative: Signed out to night team pending transvaginal ultrasound and final disposition Medical Decision Making Medical Decision Making MDM Narrative: 34-year-old female with a history of prior IV drug abuse, currently on methadone, morbid obesity, presents with the abdominal pain since earlier today. Patient's abdominal pain is generalized, unable to describe the nature of her discomfort. Associated nausea, vomiting, diarrhea, chills. No sick contacts with similar symptoms, no recent travel, no recent use of antibiotics, no hospitalizations. Denies fever or cough cold symptoms. Problem: Obesity History: Per patient I have considered the following differential diagnoses: Viral gastroenteritis, C diff, traveler's diarrhea, diverticulitis Plan: Given the patient has abdominal pain, I will obtain a CT scan, she could have diverticulitis. To note she has no risk factors for C diff or traveler's diarrhea. At the end of the day this is likely viral gastroenteritis. We will be giving Toradol IV fluid and Zofran. I have independently reviewed the following tests: Labs: Leukocytosis with left shift, not anemic, no electrolyte abnormality, not CT abdomen and pelvis: Impression: 1. Acute symptoms are likely related to the fluid-filled large and small bowel most characteristic of an infectious or inflammatory enterocolitis. No findings to suggest obstruction at this time. 2. Moderate-sized hiatal hernia. 3. Hepatomegaly. 4. Cyst anterior to the uterus as above, likely arising from the right ovary. Given its size, further evaluation with a pelvic ultrasound is suggested. This document has been electronically signed by: Dano Lay MD on 12/10/2024 04:35:47 We will be obtaining a transvaginal ultrasound, we will have to signed out to the night team pending results........ Given CT findings, with leukocytosis, I am going to treat with antibiotics. Lab Data 12/10/24 02:34 12/10/24 02:34 Labs: Lab Results 12/10/24 12/10/24 Range/Units 02:00 02:34 WBC 15.6 H (4.8-10.8) X10*3/uL RBC 5.38 (4.20-5.50) X10*6/uL Hgb 14.6 (12.0-16.0) g/dl Hct 40.7 (37.0-47.0) % MCV 75.7 L (80.0-98.0) fL MCH 27.1 (27.0-33.0) pg MCHC 35.9 H (31.0-35.0) g/dl RDW 14.2 (11.0-16.0) % Plt Count 342 (160-400) X10*3/uL MPV 9.4 (9.4-12.3) fL Immature Gran % (Auto) 0.3 (0.0-0.4) % Neut % (Auto) 82.6 H (45-73) % Lymph % (Auto) 11.8 L (20-40) % [place] % (Auto) 4.0 (2-11) % Eos % (Auto) 1.0 (0-4) % Baso % (Auto) 0.3 (0-2) % Lymph # (Auto) 1.9 (1.2-4.9) X10*3/uL [place] # (Auto) 0.6 (0.1-1.2) X10*3/uL Eos # (Auto) 0.2 (0.0-0.4) X10*3/uL Baso # (Auto) 0.1 (0.0-0.2) X10*3/uL Abs Immat Gran (auto) 0.05 H (0.00-0.03) X10*3/uL Absolute Neuts (auto) 12.9 H (2.0-8.3) x10*3/uL Absolute Nucleated RBC 0.000 (0.0-0.012) X10*3/uL Nucleated RBC % (auto) 0.0 (0.0-0.2) /100WBC Sodium 140 (135-145) mmol/L Potassium 3.9 (3.3-5.1) mmol/L Chloride 108 (96-108) mmol/L Carbon Dioxide 20 L (22-29) mmol/L Anion Gap 16 (12-20) BUN 18 H (9-16) mg/dL Creatinine 0.86 (0.5-1.4) mg/dL Estim Creat Clear Calc 103.9 Estimated GFR > 60 Random Glucose 114 (60-115) mg/dL Calcium 9.5 (8.4-10.2) mg/dL Magnesium 2.0 (1.6-2.6) mg/dL Total Bilirubin 0.5 (0.0-1.0) mg/dL Direct Bilirubin 0.1 (0.0-0.5) mg/dL AST 21 (5-31) U/L ALT 15 (0-31) U/L Alkaline Phosphatase 141 H (39-117) U/L Total Protein 8.4 H (6.5-8.0) g/dL Albumin 4.4 (3.5-5.0) g/dL Lipase 31 (8-78) U/L Beta HCG, Quant < 2 mIU/mL Urine Color Dark Yellow Urine Appearance Cloudy Urine pH 5.5 (5.0-9.0) Ur Specific [place] >= 1.030 H (1.005-1.025) Urine Protein 30 (1+) H (Neg-Trace) mg/dL Urine Glucose (UA) Negative (Negative) mg/dL Urine Ketones Trace (Negative) mg/dL Urine Blood Negative (Negative) Urine Nitrite Negative (Negative) Ur Leukocyte Esterase Negative (Negative) Urine RBC 0-2 (0-2) /HPF Urine WBC 6-10 H (0-5) /HPF Ur Squamous Epith Cells 11-20 (0-2) /HPF Urine Bacteria 2+ (None Seen) Hyaline Casts 3-5 (0-2) /LPF Urine Test NEGATIVE (NEGATIVE) Medications Administered Discontinued Medications Generic Name Dose Route Start Last Admin Trade Name Freq PRN Reason Stop Dose Admin Amoxicillin/Clavulanate Potassium 875 mg 12/10/24 04:48 12/10/24 05:04 Amoxicillin/Potassium Clav 875 Mg Tablet PO 12/10/24 04:49 875 mg ONCE ONE Administration Sodium Chloride 500 mls @ 500 mls/hr 12/10/24 02:32 12/10/24 03:53 Ns IV 12/10/24 03:31 Infused .Q1H ONE Infusion Iohexol 85 ml 12/10/24 03:31 12/10/24 03:32 Iohexol 350 Mg/Ml 100 Ml Infus..Btl IV 12/10/24 03:32 85 ml ONCE ONE Administration Ketorolac Tromethamine 15 mg 12/10/24 02:32 12/10/24 02:47 Ketorolac Tromethamine 15 Mg/Ml Vial IVPUSH 12/10/24 02:33 15 mg ONCE ONE Administration Ondansetron HCl 4 mg 12/10/24 02:32 12/10/24 02:47 Ondansetron Hcl 4 Mg/2 Ml Vial IVPUSH 12/10/24 02:33 4 mg ONCE ONE Administration Discharge Plan Discharge Clinical Impression: Gastroenteritis, Ovarian cyst Patient Disposition: Still a Patient Instructions: Ovarian Cyst (ED), Gastroenteritis (ED) Additional Instructions: You were found to have gastroenteritis on the CT scan. See home care instructions. Take the Augmentin as directed. You should use a probiotic, this will help replenish the good bacteria in your gut. You also were found to have an ovarian cyst. Prescriptions: New amoxicillin-pot clavulanate 875-125 mg tablet 1 tab PO BID Qty: 13 0RF No Action cefuroxime axetil 250 mg tablet 250 mg PO BID 7 Days Qty: 14 0RF phenazopyridine [Pyridium] 100 mg tablet 200 mg PO TID 2 Days Qty: 6 0RF cephalexin 500 mg capsule 500 mg PO Q6H 7 Days Qty: 28 0RF doxycycline hyclate 100 mg tablet 100 mg PO BID 5 Days Qty: 10 0RF cephalexin 500 mg capsule 500 mg PO BID 5 Days Qty: 10 0RF Print Language: Estonian
--- NOTE | 2024-12-10 05:03 | PC.NURSE ---
pt taken to ultra sound.
[2024-12-10] MEDS: Amoxicillin/Potassium Clav 875 MG TABLET PO (05:04)
--- NOTE | 2024-12-10 05:06 | PC.NURSE ---
pt ambulated to rest room with a steady gait, medicated per dec.
[2024-12-10] MEDS: LORazepam 2 MG/ML VIAL 1 MG IVPUSH (05:35)
--- NOTE | 2024-12-10 05:38 | PC.NURSE ---
pt continued to vomit, notified lizbet Grande , medicated per dec.
--- NOTE | 2024-12-10 07:30 | PC.NURSE ---
off unit to u/s at this time
[2024-12-10] MEDS: diphenhydrAMINE HCL 50 MG/ML VIAL 12.5 MG IVPUSH (09:36)
[2024-12-10] MEDS: Prochlorperazine Edisylate 10 MG/2 ML VIAL IVPUSH (09:38)
[2024-12-10] MEDS: Lactated Ringers 1,000 ML 999 ML IV (09:40)
[2024-12-10 09:41] LABS: C Reactive Protein 0.16 mg/dL (< or = 0.50)
--- NOTE | 2024-12-10 10:30 | HE.PHANOTE ---
METHADONE CONFIRMATION FORM 147MG FROM [facility] ON 12/06 WITH THREE TAKE HOME BOTTLES
[2024-12-10] MEDS: methADONE HCl 20 MG/2 ML ORAL.CONC 147 MG PO (10:48)
== END 2024-12-10 12:37 | disposition still patient (30) ==
PROVIDERS: Emergency Medicine; Physician Assistant Medical; Emergency Provider Emergency Medicine
DX: K52.9 Noninfective gastroenteritis and colitis, unspecified (principal); N83.201 Unspecified ovarian cyst, right side; R10.13 Epigastric pain; R11.2 Nausea with vomiting, unspecified; Z79.899 Other long term (current) drug therapy
CPT/HCPCS: 36415; 74177; 76830; 76856; 80048; 80076; 81001; 81025; 83690; 83735; 84702; 85025; 86140; 87086; 93975; 96361; 96374; 96375; 96376; 99285; J0737; J1200; J1885; J2060; J2405; J7120; Q9967

== ENCOUNTER → 2024-12-10 02:32 | Outpatient (BNV) | payer OTHER, SELFPAY | PROVIDERS: Emergency Provider Emergency Medicine; Visit Provider Radiology Diagnostic Radiology | DX: N83.201 Unspecified ovarian cyst, right side (principal); R16.0 Hepatomegaly, not elsewhere classified; K44.9 Diaphragmatic hernia without obstruction or gangrene | CPT/HCPCS: 74177; 76830; 76856; 93975 ==